=== PATIENT | male | born 1935 | race Caucasian/White ===

== ENCOUNTER → 2016-05-17 | Outpatient (CLI) | payer MEDICARE, OTHER ==
[~2016-05-17] VITALS: Ht 170.2 cm; Wt 81.6 kg
[~2016-05-17] MED LIST: ASPI1TAB24 PO; AVAP150T31 PO; COEN1POW PO; DIPH2.5T14 PO; FISH1000 PO; FURO20TA2 PO; LIDOCAINE 2% INJ 100 MG/5 ML SDV (FOR ANES.) As Ordered ONE; NORV5TAB PO; NS 1,000 ML IV SCH; PANT40TA2 PO; PLAV75TA38 PO; PROPOFOL 200 MG/20 ML VIAL As Ordered ONE; RED1CAP5 PO; VITA100066 PO; VITATAB11 PO
--- NOTE | 2016-05-17 11:43 | ROOR ---
Patient Name: Erik Haddad Procedure Date: 05/17/2016 11:27 AM Date of : 1935 Age: 81 Room: [facility] Gender: Male Note Status: Finalized Procedure: Colonoscopy to Cecum Indications: High risk colon cancer surveillance: Personal history of colonic polyps Providers: Tremaine Pocne MD Referring MD: Justin Estrada MD Requesting Provider: Medicines: Monitored Anesthesia Care Complications: No immediate complications. Procedure: Pre-Anesthesia Assessment: - The heart rate, respiratory rate, oxygen saturations, blood pressure, adequacy of pulmonary ventilation, and response to care were monitored throughout the procedure. The Colonoscope was introduced through the anus and advanced to the cecum, identified by appendiceal orifice and ileocecal valve. The colonoscopy was performed without difficulty. The patient tolerated the procedure well. The quality of the bowel preparation was excellent. Findings: The perianal and digital rectal examinations were normal. Non-bleeding internal hemorrhoids were found during retroflexion. The hemorrhoids were small and Grade I (internal hemorrhoids that do not prolapse). Scattered small-mouthed diverticula were found in the recto-sigmoid colon, sigmoid colon and descending colon. The exam was otherwise without abnormality on direct and retroflexion views. Impression: - Non-bleeding internal hemorrhoids. - Diverticulosis in the recto-sigmoid colon, in the sigmoid colon and in the descending colon. - The examination was otherwise normal on direct and retroflexion views. - No specimens collected. - The exam was otherwise normal to the cecum. Recommendation: - Patient has a contact number available for emergencies. The signs and symptoms of potential delayed complications were discussed with the patient. Return to normal activities tomorrow. Written discharge instructions were provided to the patient. - High fiber diet. - Discharge patient to home. - Continue present medications. - Repeat colonoscopy for symptoms only. - Return to referring physician. - The findings and recommendations were discussed with the patient's family. Tremaine Ponce MD Tremaine Ponce MD 05/17/2016 11:43:31 AM This report has been signed electronically. Number of Addenda: 0 Note Initiated On: 05/17/2016 11:27 AM Estimated Blood Loss: Estimated blood loss: none.
[2016-05-17 12:20] VITALS: BP 147/78
== END | disposition home or self-care (01) ==
LOC: M OPP 10:27
PROVIDERS: ATTEND Internal Medicine Gastroenterology
DX: Z12.11 Encounter for screening for malignant neoplasm of colon (principal); K64.0 First degree hemorrhoids; K57.30 Diverticulosis of large intestine without perforation or abscess without bleeding; Z86.010 Personal history of colon polyps; I10 Essential (primary) hypertension; E78.5 Hyperlipidemia, unspecified; Z87.19 Personal history of other diseases of the digestive system; R12 Heartburn; R23.3 Spontaneous ecchymoses; M19.90 Unspecified osteoarthritis, unspecified site; Z85.828 Personal history of other malignant neoplasm of skin; I63.9 Cerebral infarction, unspecified; H26.9 Unspecified cataract; Z92.3 Personal history of irradiation; Z79.82 Long term (current) use of aspirin; Z79.01 Long term (current) use of anticoagulants; Z79.899 Other long term (current) drug therapy; Z87.891 Personal history of nicotine dependence
CPT/HCPCS: 99156; G0105

== ENCOUNTER → 2016-11-03 | Outpatient (REF) | payer MEDICARE, OTHER ==
[~2016-11-03] MED LIST changes: +ASPI-161 PO; -ASPI1TAB24 PO; -LIDOCAINE 2% INJ 100 MG/5 ML SDV (FOR ANES.) As Ordered ONE; -NS 1,000 ML IV SCH; +PLAV1TAB2 PO; -PLAV75TA38 PO; -PROPOFOL 200 MG/20 ML VIAL As Ordered ONE
[2016-11-03 13:02] LABS: BASO # 0.1 K/mm3 (0.0-0.2); BASO % 0.9 % (0.0-1.0); EOS # 0.4 K/mm3 (0.0-0.50); EOS % 6.2 % (0.0-3.0); LARGE UNSTAINED CELL # 0.2 K/mm3 (0.0-0.4); LARGE UNSTAINED CELL % 2.2 % (0.0-4.0); LYMPH # 1.8 K/mm3 (1.5-4.5); LYMPH % 24.1 % (24.0-44.0); MEAN CORPUSCULAR HEMOGLOBIN 33.3 pg (27.0-33.0); MEAN CORPUSCULAR HGB CONC 34.1 g/dl (32.0-36.5); MEAN CORPUSCULAR VOLUME 97.7 fl (80.0-96.0); MONO # 0.6 K/mm3 (0.0-0.8); MONO % 8.5 % (0.0-5.0); NEUTROPHILS # 3.9 K/mm3 (1.8-7.7); PLATELET COUNT, AUTOMATED 202 k/mm3 (150-450); RED CELL DISTRIBUTION WIDTH 12.8 % (11.5-14.5); WHITE BLOOD COUNT 6.7 K/mm3 (4.0-10.0)
[2016-11-03 13:27] LABS: ALBUMIN 3.6 GM/DL (3.2-5.2); ALBUMIN/GLOBULIN RATIO 1.09 (1.00-1.93); BILIRUBIN,TOTAL 0.8 MG/DL (0.2-1.0); CALCIUM LEVEL 9.2 MG/DL (8.8-10.2); CREATININE FOR GFR 1.57 MG/DL (0.70-1.30); FREE T4 1.25 NG/DL (0.76-1.46); GLOMERULAR FILTRATION RATE 45.5 (>35); POTASSIUM SERUM 4.6 MEQ/L (3.5-5.1); TOTAL PROTEIN 6.9 GM/DL (6.4-8.2)
== END ==
LOC: M SFHCPLAZ 09:40
PROVIDERS: ATTEND Family Medicine
DX: Z86.73 Personal history of transient ischemic attack (TIA), and cerebral infarction without residual deficits (principal); E03.9 Hypothyroidism, unspecified; R73.01 Impaired fasting glucose

== ENCOUNTER → 2016-11-16 | Outpatient (REF) | payer MEDICARE, OTHER ==
[2016-11-16 13:30] LABS: URIC ACID 8.9 MG/DL (3.5-7.2)
== END ==
LOC: M SFHCPLAZ 09:46
PROVIDERS: ATTEND Family Medicine
DX: K62.5 Hemorrhage of anus and rectum (principal)
CPT/HCPCS: 36415; 82607; 84550; G0103

== ENCOUNTER → 2017-06-13 | Outpatient (REF) | payer MEDICARE, OTHER ==
[2017-06-13 18:55] LABS: BASO % 0.7 % (0.0-1.0); EOS # 0.4 10^3/uL (0.0-0.50); EOS % 6.5 % (0.0-3.0); HEMATOCRIT 47.3 % (42.0-52.0); IMMATURE GRANULOCYTE % 0.2 % (0-3.0); LYMPH # 1.9 10^3/uL (1.5-4.5); LYMPH % 30.9 % (24.0-44.0); MEAN CORPUSCULAR HEMOGLOBIN 32.3 pg (27.0-33.0); MEAN CORPUSCULAR HGB CONC 33.8 g/dl (32.0-36.5); MEAN CORPUSCULAR VOLUME 95.4 fl (80.0-96.0); MONO # 0.6 10^3/uL (0.0-0.8); MONO % 9.2 % (0.0-5.0); NEUTROPHILS # 3.2 10^3/uL (1.8-7.7); NEUTROPHILS % 52.5 % (36.0-66.0); PLATELET COUNT, AUTOMATED 224 10^3/uL (150-450); RED BLOOD COUNT 4.96 10^6/uL (4.30-6.10); RED CELL DISTRIBUTION WIDTH 13.2 % (11.5-14.5)
[2017-06-13 19:10] LABS: ALBUMIN 3.8 GM/DL (3.2-5.2); ALBUMIN/GLOBULIN RATIO 1.09 (1.00-1.93); ALKALINE PHOSPHATASE 89 U/L (45-117); ALT/SGPT 34 U/L (12-78); ANION GAP 4 MEQ/L (8-16); AST/SGOT 20 U/L (7-37); BILIRUBIN,TOTAL 0.8 MG/DL (0.2-1.0); BLOOD UREA NITROGEN 25 MG/DL (7-18); CALCIUM LEVEL 9.7 MG/DL (8.8-10.2); CARBON DIOXIDE LEVEL 28 MEQ/L (21-32); CHLORIDE LEVEL 110 MEQ/L (98-107); CREATININE FOR GFR 1.53 MG/DL (0.70-1.30); GLOMERULAR FILTRATION RATE 46.7 (>35); GLUCOSE, FASTING 73 MG/DL (70-100); POTASSIUM SERUM 4.2 MEQ/L (3.5-5.1); RHEUMATOID FACTOR QUANT < 10.0 IU/ML (<15.0); SODIUM LEVEL 142 MEQ/L (136-145); TOTAL PROTEIN 7.3 GM/DL (6.4-8.2)
[2017-06-13 20:08] LABS: ESTIMATED AVERAGE GLUCOSE 103 MG/DL (60-110); HEMOGLOBIN A1c 5.2 %
[2017-06-13 21:00] LABS: ERYTHROCYTE SEDIMENTATION RATE 9 mm/hr (0-20)
[2017-06-14 10:13] LABS: ALBUMIN 4.15 GM/DL (3.29-5.55); ALBUMIN % 56.9 % (55.8-66.1); ALPHA-1-GLOBULIN % 4.8 % (2.9-4.9); ALPHA-1-GLOBULINS 0.35 GM/DL (0.17-0.41); ALPHA-2-GLOBULINS 0.85 GM/DL (0.42-0.99); ALPHA-2-GLOBULINS % 11.6 % (7.1-11.8); BETA-1-GLOBULINS 0.51 GM/DL (0.28-0.60); BETA-2-GLOBULINS % 6.8 % (3.2-6.5); GAMMA GLOBULIN % 12.9 % (11.1-18.8); GAMMA GLOBULINS 0.94 GM/DL (0.65-1.58)
[2017-06-15 08:04] LABS: FOLATE > 24.0 NG/ML; VITAMIN B12 LEVEL 411 PG/ML
[2017-06-15 14:19] LABS: ANTINUCLEAR ANTIBODIES DIRECT Negative (Negative); SJOGREN'S ANTI SS-A <0.2 AI (0.0-0.9); SJOGREN'S ANTI SS-B <0.2 AI (0.0-0.9)
[2017-06-18 14:12] LABS: ANTI DOUBLE STRAND-DNA AB 1 IU/mL (0-9); VITAMIN E(ALPHA TOCOPHEROL) 12.4 mg/L (9.0-29.0)
[2017-06-19 10:44] LABS: DRVV SCREEN 44.4 SEC
[2017-06-20 00:06] LABS: VITAMIN B1 LEVEL WHOLE BLOOD 193.6 nmol/L (66.5-200.0)
== END ==
LOC: M LABNEURO 10:11
DX: R41.3 Other amnesia (principal); Z79.899 Other long term (current) drug therapy
CPT/HCPCS: 82746

== ENCOUNTER → 2017-07-24 | Outpatient (REF) | payer MEDICARE, OTHER ==
[2017-07-24 13:50] LABS: BASO % 0.6 % (0.0-1.0); EOS # 0.2 10^3/uL (0.0-0.50); EOS % 3.9 % (0.0-3.0); HEMATOCRIT 44.3 % (42.0-52.0); HEMOGLOBIN 15.2 g/dl (13.5-17.5); IMMATURE GRANULOCYTE % 0.4 % (0-3.0); LYMPH # 1.7 10^3/uL (1.5-4.5); LYMPH % 33.4 % (24.0-44.0); MEAN CORPUSCULAR HEMOGLOBIN 32.8 pg (27.0-33.0); MEAN CORPUSCULAR HGB CONC 34.3 g/dl (32.0-36.5); MEAN CORPUSCULAR VOLUME 95.5 fl (80.0-96.0); MONO # 0.8 10^3/uL (0.0-0.8); MONO % 15.8 % (0.0-5.0); NEUTROPHILS # 2.4 10^3/uL (1.8-7.7); NEUTROPHILS % 45.9 % (36.0-66.0); PLATELET COUNT, AUTOMATED 188 10^3/uL (150-450); RED BLOOD COUNT 4.64 10^6/uL (4.30-6.10); RED CELL DISTRIBUTION WIDTH 13.2 % (11.5-14.5); WHITE BLOOD COUNT 5.1 10^3/uL (4.0-10.0)
[2017-07-24 14:23] LABS: ALBUMIN 3.6 GM/DL (3.2-5.2); ALBUMIN/GLOBULIN RATIO 1.06 (1.00-1.93); ALKALINE PHOSPHATASE 101 U/L (45-117); ALT/SGPT 35 U/L (12-78); ANION GAP 5 MEQ/L (8-16); AST/SGOT 27 U/L (7-37); BILIRUBIN,TOTAL 0.6 MG/DL (0.2-1.0); BLOOD UREA NITROGEN 23 MG/DL (7-18); CARBON DIOXIDE LEVEL 27 MEQ/L (21-32); CHLORIDE LEVEL 109 MEQ/L (98-107); CPK CREATINE PHOSPHOKINASE 40 U/L (39-308); CREATININE FOR GFR 1.63 MG/DL (0.70-1.30); GLOMERULAR FILTRATION RATE 43.4 (>35); GLUCOSE, FASTING 80 MG/DL (70-100); POTASSIUM SERUM 4.1 MEQ/L (3.5-5.1); SODIUM LEVEL 141 MEQ/L (136-145); TROPONIN I 0.02 NG/ML (< 0.10)
[2017-07-26 10:13] LABS: D001-IgE D pteronyssinus <0.10 kU/L (Class 0); E001-IgE Cat Epith/Dander < 0.10 kU/L (Class 0); E005-IgE Dog Dander < 0.10 kU/L (Class 0); G002-IgE Bermuda Grass < 0.10 kU/L (Class 0); G008-IgE Kentucky Bluegrass < 0.10 kU/L (Class 0); M001-IgE Penicillium chrysogen < 0.10 kU/L (Class 0); M002 IgE Cladosporium herbaru < 0.10 kU/L (Class 0); M003 IgE Aspergillus fumigatu < 0.10 kU/L (Class 0); M006-IgE Alternaria alternata < 0.10 kU/L (Class 0); T001-IgE Maple/Box Elder < 0.10 kU/L (Class 0); T003-IgE Common Silver Birch < 0.10 kU/L (Class 0); T006-IgE Cedar, Mountain < 0.10 kU/L (Class 0); T007-IgE Oak, White < 0.10 kU/L (Class 0); T008-IgE Elm, American < 0.10 kU/L (Class 0); T015-IgE Ash, White < 0.10 kU/L (Class 0); T041-IgE Hickory, White < 0.10 kU/L (Class 0); T070-IgE White Mulberry < 0.10 kU/L (Class 0); W001-IgE Ragweed, Short < 0.10 kU/L (Class 0); W009-IgE Plantain, English < 0.10 kU/L (Class 0); W014-IgE Pigweed, Rough < 0.10 kU/L (Class 0); W018-IgE Sheep Sorrel < 0.10 kU/L (Class 0)
== END ==
LOC: M SFHCPLAZ 12:18
DX: R53.83 Other fatigue (principal); R05 Cough; Z79.899 Other long term (current) drug therapy
CPT/HCPCS: 82550

== ENCOUNTER 2017-08-12 06:39 | Emergency (ER) | payer MEDICARE, OTHER ==
[2017-08-12 07:48] LABS: BASO % 0.6 % (0.0-1.0); EOS # 0.4 10^3/uL (0.0-0.50); EOS % 5.2 % (0.0-3.0); HEMATOCRIT 40.8 % (42.0-52.0); HEMOGLOBIN 14.2 g/dl (13.5-17.5); IMMATURE GRANULOCYTE % 0.1 % (0-3.0); LYMPH # 1.6 10^3/uL (1.5-4.5); LYMPH % 22.2 % (24.0-44.0); MEAN CORPUSCULAR HEMOGLOBIN 32.4 pg (27.0-33.0); MEAN CORPUSCULAR HGB CONC 34.8 g/dl (32.0-36.5); MEAN CORPUSCULAR VOLUME 93.2 fl (80.0-96.0); MONO # 0.6 10^3/uL (0.0-0.8); MONO % 8.4 % (0.0-5.0); NEUTROPHILS # 4.5 10^3/uL (1.8-7.7); NEUTROPHILS % 63.5 % (36.0-66.0); PLATELET COUNT, AUTOMATED 196 10^3/uL (150-450); RED BLOOD COUNT 4.38 10^6/uL (4.30-6.10); WHITE BLOOD COUNT 7.1 10^3/uL (4.0-10.0)
[2017-08-12 08:00] LABS: INR 0.98; PROTHROMBIN TIME 13.1 SECONDS (12.4-14.5)
[2017-08-12 08:01] LABS: PARTIAL THROMBOPLASTIN TIME 28.6 SECONDS (26.8-37.9)
== END 2017-08-12 08:18 | disposition home or self-care (01) ==
LOC: M ED 06:39
DX: R04.0 Epistaxis (principal); I10 Essential (primary) hypertension; Z86.73 Personal history of transient ischemic attack (TIA), and cerebral infarction without residual deficits; K21.9 Gastro-esophageal reflux disease without esophagitis; Z87.891 Personal history of nicotine dependence; Z79.82 Long term (current) use of aspirin; Z79.899 Other long term (current) drug therapy
CPT/HCPCS: 85610

== ENCOUNTER 2018-05-10 06:32 | Inpatient (IN) | payer MEDICARE, OTHER ==
[~2018-05-10] VITALS: Ht 170.2 cm; Wt 78.1 kg
[~2018-05-10 06:32] MED LIST changes: +EZET10TA PO; +FEBU40TA PO; +NAME5TAB13 PO; -PANT40TA2 PO; +PANT40TA3 PO
[2018-05-10] MEDS ORDERED: VITA100066 PO (06:56)
[2018-05-10 06:58] LABS: BASO # 0.1 10^3/uL (0.0-0.2); BASO % 0.6 % (0.0-1.0); EOS # 0.4 10^3/uL (0.0-0.50); EOS % 3.5 % (0.0-3.0); HEMATOCRIT 43.6 % (42.0-52.0); HEMOGLOBIN 14.3 g/dl (13.5-17.5); LYMPH # 1.3 10^3/uL (1.5-4.5); LYMPH % 12.6 % (24.0-44.0); MEAN CORPUSCULAR HEMOGLOBIN 30.9 pg (27.0-33.0); MEAN CORPUSCULAR HGB CONC 32.8 g/dl (32.0-36.5); MEAN CORPUSCULAR VOLUME 94.2 fl (80.0-96.0); MONO # 0.9 10^3/uL (0.0-0.8); MONO % 8.8 % (0.0-5.0); NEUTROPHILS # 7.5 10^3/uL (1.8-7.7); NEUTROPHILS % 74.1 % (36.0-66.0); PLATELET COUNT, AUTOMATED 219 10^3/uL (150-450); RED BLOOD COUNT 4.63 10^6/uL (4.30-6.10); WHITE BLOOD COUNT 10.1 10^3/uL (4.0-10.0)
[2018-05-10 07:20] LABS: INR 1.03; PARTIAL THROMBOPLASTIN TIME 31.4 SECONDS (25.4-37.6); PROTHROMBIN TIME 13.6 SECONDS (12.1-14.4)
[2018-05-10 07:28] LABS: BLOOD UREA NITROGEN 25 MG/DL (7-18); CALCIUM LEVEL 9.4 MG/DL (8.8-10.2); CARBON DIOXIDE LEVEL 25 MEQ/L (21-32); CHLORIDE LEVEL 109 MEQ/L (98-107); GLOMERULAR FILTRATION RATE 41.3 (>35); GLUCOSE, FASTING 95 MG/DL (70-100); POTASSIUM SERUM 4.4 MEQ/L (3.5-5.1); SODIUM LEVEL 142 MEQ/L (136-145)
[2018-05-10 07:50] LABS: ALBUMIN 3.3 GM/DL (3.2-5.2); ALT/SGPT 23 U/L (12-78); BILIRUBIN,DIRECT 0.2 MG/DL (0.0-0.2); BILIRUBIN,TOTAL 0.9 MG/DL (0.2-1.0); CPK CREATINE PHOSPHOKINASE 41 U/L (39-308); MB/CK RELATIVE INDEX 2.68 (< OR =4); NT-PRO BNP 5969 PG/ML (<450); TOTAL PROTEIN 6.8 GM/DL (6.4-8.2); TROPONIN I < 0.02 NG/ML (< 0.10)
--- NOTE | 2018-05-10 08:21 | REP ---
AP portable chest: 05/10/2018 Clinical history: Chest pain. Findings: AP seated chest with somewhat lordotic projection. Lungs are well inflated. There is some underlying fibrosis greater in the bases, right than left. No dense consolidation or effusion. Heart is borderline. There is no vascular redistribution or edema. The aorta is tortuous and calcified. Airway intact. No free air under the diaphragm. Impression: 1. Some mild cardiomegaly with no effusion or edema. 2. Tortuous calcified aorta with ectasia. 3. Basilar fibrosis, heavier right than left. Bones demineralized. Electronically Signed by Roshan Najera MD 05/10/2018 06:20 P
[2018-05-10] MEDS ORDERED: FUROSEMIDE 40 MG/4 ML VIAL (J1940) IV ONE (08:30)
--- NOTE | 2018-05-10 08:38 | REPVR ---
EXAM: CT Head Without Contrast EXAM DATE/TIME: 05/10/2018 7:31 AM CLINICAL HISTORY: 83 years old, male; Signs and symptoms; Other: Neuro symptoms; Additional info: Vague neuro symptoms, new afib TECHNIQUE: Axial computed tomography images of the head/brain without contrast. All CT scans at this facility use at least one of these dose optimization techniques: automated exposure control; mA and/or kV adjustment per patient size (includes targeted exams where dose is matched to clinical indication); or iterative reconstruction. COMPARISON: No relevant prior studies available. FINDINGS: Brain: Low-attenuation area in the left thalamus, and right basal ganglia/anterior limb of the external capsule representing age-indeterminate may be subacute infarcts. Old infarct in the left yin radiata extending into the left periventricular white matter. No large territory infarct is seen. No hemorrhage. Further evaluation with MR is recommended. Moderate small vessel ischemic changes are seen. There is no mass, midline shift, or mass effect. Mckeon-white matter differentiation is preserved. There is no evidence of hemorrhage. There is no extra-axial fluid collection. Basal cisterns are patent. 5 mm hyperdensity in the region of the foramen of Al, likely choroid cyst. Ventricles: Mild prominence of ventricles and sulci representing volume loss. Bones/joints: Unremarkable. No acute fracture. Sinuses: Mild mucosal thickening of ethmoidal air cells. Mastoid air cells: Visualized mastoid air cells are unremarkable. No mastoid effusion. Soft tissues: Unremarkable. IMPRESSION: 1. Low-attenuation area in the left thalamus, and right basal ganglia/anterior limb of the external capsule representing age-indeterminate may be subacute infarcts. Old infarct in the left yin radiata extending into the left periventricular white matter. No large territory infarct is seen. No hemorrhage. 2. Mild volume loss and moderate small vessel ischemic changes. Electronically signed by: Renae Valencia On 05/10/2018 08:37:52 AM
--- NOTE | 2018-05-10 12:02 | REP ---
MRA BRAIN WITHOUT CONTRAST: HISTORY: Infarctions. 3D [id number] MR angiography was performed at the level of the [place]. There is no aneurysm or arteriovenous malformation. Mild atherosclerotic disease involves the cavernous and supraclinoid internal carotid arteries, middle cerebral artery trifurcations, basilar, and posterior cerebral arteries. There is loss of the normal hyperintense signal in the distal left vertebral artery in the foramen magnum. This is secondary to at least moderate stenosis. Major intracranial vessels are patent. The right vertebral artery is dominant. IMPRESSION: 1. There is no aneurysm or arteriovenous malformation. 2. Atherosclerotic disease, as described above. Electronically Signed by Mahesh Ivey MD 05/10/2018 12:04 P
--- NOTE | 2018-05-10 12:35 | REP ---
MR BRAIN WITHOUT CONTRAST: HISTORY: Neurologic symptoms. COMPARISON: CT 05/10/2018. A punctate focus of increased signal intensity on diffusion weighted images is present in the left parietal lobe. This is isointense in signal intensity on ADC images and is consistent with a subacute infarction. Areas of increased signal intensity on T2-weighted images are present in the basal ganglia, left internal capsule, and left centrum semiovale. These represent old lacunar infarctions. Areas of increased signal intensity are present in the periventricular and subcortical white matter. This represents small vessel ischemic disease. There is no intraparenchymal hemorrhage, acute infarct, mass, or midline shift. The ventricular system and cortical sulci as well as subarachnoid space in the posterior fossa are dilated consistent with mild volume loss. There is no extracerebral collection. The visualized sinuses are clear. IMPRESSION: 1. Punctate subacute left parietal lobe infarction. 2. Old bilateral basal ganglia, left internal capsule, and centrum semiovale lacunar infarctions. 3. Small vessel ischemic disease. 4. Mild volume loss. Electronically Signed by Mahesh Ivey MD 05/10/2018 12:36 P
[2018-05-10] MEDS ORDERED: NS 1,000 ML IV SCH (14:05)
[2018-05-10] MEDS ORDERED: FISH7.5C PO (14:21)
[2018-05-10] MEDS ORDERED: COEN200C PO (14:23)
--- NOTE | 2018-05-10 15:33 | HPE ---
DATE OF ADMISSION: 05/10/2018 The patient is an 83-year-old with a past medical history of hypertension, hyperlipidemia, history of cerebrovascular accident (CVA) times two, one in June 2001 and the other one in 2004, benign prostatic hypertrophy (BPH) who presents to the emergency room after having a severe acute vertigo episode. He did not feel like he was going to pass out but he was walking and he suddenly felt very, very dizzy. Over the past couple of weeks, he has been having more mild shortness of breath and decreased energy upon ambulation. No chest pain or palpitations. When he came to the emergency room (ER), he was found to be in new onset atrial fibrillation with rate being controlled and MRI and MRA of the brain was done. MRA was negative. MRI did show a left parietal lobe new subacute infarct so he will be admitted for further management. PAST MEDICAL HISTORY: 1. Hypertension. 2. Hyperlipidemia. 3. History of cerebrovascular accident (CVA) in 2001 and 2004. 4. History of gastroesophageal reflux disease (GERD). 5. Benign prostatic hypertrophy (BPH). ALLERGIES: He has drug allergies to ASPIRIN. FAMILY HISTORY: Noncontributory. SOCIAL HISTORY: The patient denies tobacco, alcohol or illicit drugs. MEDICATIONS: He takes at home are as follows: - aspirin 81 mg orally daily - amlodipine 2.5 mg orally daily - vitamin B complex one tablet orally daily - cholecalciferol 1000 units orally daily - Plavix 75 mg orally daily - ezetimibe 10 mg orally daily - febuxostat 40 mg orally at bedtime - irbesartan 150 mg orally twice daily - memantine 5 mg orally daily - omega-3 fatty acids one tablet orally daily - pantoprazole 40 mg orally daily REVIEW OF SYSTEMS: Negative for all 10 major systems except for what is mentioned in the history of present illness (HPI). VITAL SIGNS: Blood pressure is 129/92, heart rate is 114 and irregular, respiratory rate is 18, temperature 98.5, oxygen saturation is 93% on room air. Head is normocephalic, atraumatic. NECK: Supple. No jugular venous distention (JVD). LUNGS: Clear to auscultation. S1, S2 audible. No murmurs appreciated. ABDOMEN: Soft. Positive bowel sounds. No pedal edema. SKIN: Intact. NEUROLOGIC: The patient is awake, alert, and oriented times three. No focal deficits. LABORATORY DATA: WBC 10.1, hemoglobin 14.3, hematocrit 43.6, platelets are 219,000. Sodium 142, potassium 4.4, chloride is 109, CO2 25, BUN is 25, creatinine is 1.7, glucose is 95, troponin is less than 0.02 first set, TSH is 5.2, INR 1.03. Urinalysis was unremarkable. Chest x-ray shows some mild cardiomegaly with no effusion or edema. IMPRESSION: 1. New onset atrial fibrillation. 2. Subacute parietal lobe infarct. PLAN: The patient will be admitted to the progressive care unit (PCU). His CHADs vascular score is 5 which puts him at a high risk for embolic stroke. I actually believe that he is having atrial fibrillation this past couple of weeks where he has been having these vague symptoms. I will start him on Eliquis 2.5 mg by mouth twice a day and I am going to stop his amlodipine and start him on Lopressor 25 mg orally twice daily. We will monitor his blood pressure and his heart rate respectively. We will get a second troponin to rule out acute coronary syndrome. Neurology's input is appreciated. They do not need to be on consult at this time. We will start the patient on Eliquis as mentioned earlier. We will have them as well as cardiology follow the patient as an outpatient. I will also get an echocardiogram to rule out any kind of valvular thrombus.
[2018-05-10] MEDS: METOPROLOL TART 25 MG TABLET PO SCH (16:06)
[2018-05-10 19:30] VITALS: BP 130/90
--- NOTE | 2018-05-10 20:32 | ECGEPIP ---
Stationary ECG Study [facility] - ED Test Date: 2018-05-10 Pat Name: MACIE SMITH Department: Room: [place] [address] Gender: M Barber Stylist: : 1935 Requested By: JACK Johnson Order Number: [id number] Reading MD: Juan Roberts Measurements Intervals [place] Rate: 98 P: PA: 0 QRS: -4 QRSD: 88 T: 71 QT: 346 QTc: 443 Interpretive Statements ATRIAL FIBRILLATION MODERATE VOLTAGE CRITERIA FOR LVH, CONSIDER NORMAL VARIANT NONSPECIFIC ST & T-WAVE ABNORMALITY NO PRIORS FOR COMPARISON Electronically Signed On 05-10-2018 20:32:12 EDT by Juan Roberts
[2018-05-10] MEDS: APIXABAN 2.5 MG TAB (ELIQUIS) PO SCH (21:23)
[2018-05-10] MEDS: IRBESARTAN 150 MG TAB PO SCH (21:23)
[2018-05-10] MEDS: FEBUXOSTAT 40 MG TABLET (ULORIC) PO SCH (21:23)
[2018-05-11] VITALS: BP 147/85
[2018-05-11] MEDS: METOPROLOL TART 25 MG TABLET PO SCH (03:50)
[2018-05-11 06:21] LABS: CALCIUM LEVEL 9.4 MG/DL (8.8-10.2); CREATININE FOR GFR 1.8 MG/DL (0.70-1.30); GLOMERULAR FILTRATION RATE 38.6 (>35); POTASSIUM SERUM 3.9 MEQ/L (3.5-5.1)
[2018-05-11 07:55] VITALS: BP 117/66
--- NOTE | 2018-05-11 08:15 | REP ---
Bilateral carotid duplex ultrasound: Bilateral carotid artery duplex ultrasound: Peak flow velocity analysis: RIGHT LEFT ICA Peak flow velocity cm/sec 53.5 49.7 ICA Diastolic flow velocity cm/sec 23.1 18.8 ICA/CCA Ratio 0.6 2.7 ECA Peak flow velocity cm/sec 65.6 85.0 CCA Peak flow velocity cm/sec 82.8 69.6 There is moderate atheromatous plaque in the common carotid arteries, bulbs and proximal ICA s and ECAs bilaterally. Peak flow velocities are normal bilaterally. The findings indicate less than 50% stenosis bilaterally. There is no significant stenosis on the right on the left. There is antegrade flow in the vertebral arteries bilaterally. Electronically Signed by Eladio Burger MD 05/11/2018 08:07 A
[2018-05-11] MEDS ORDERED: CLOPIDOGREL 75 MG TAB PO SCH (09:00)
--- NOTE | 2018-05-11 09:42 | CR ---
DATE OF CONSULTATION: 05/10/2018 REFERRING PHYSICIAN: Dr. Roberts REASON FOR CONSULTATION: Stroke and new-onset atrial fibrillation. HISTORY OF PRESENT ILLNESS: Mr. Haddad is an 83-year-old man with a history of stroke in 2001 and 2004who has been having symptoms of not feeling well for the last several weeks. He had an episode of dizziness described as spinning sensation. He also was not feeling well. He felt shortness of breath. He felt decreased energy. He denied any trouble with speech, numbness, weakness of arms and legs. His symptoms started a week ago. He did not feel any palpitations. He denies any seizures, neck or back pain. He had a headache yesterday. He came to the emergency department and was found to have new-onset atrial fibrillation. MRI scan of brain showed a small left parietal deep cerebral white matter acute - subacute ischemic stroke. Dr. Roberts called me about him, and I recommended admitting the patient to the hospital and discontinuing his Plavix, not continue his aspirin and start him on anticoagulation. The patient has decreased kidney functions with creatinine 1.7. The patient has been started on Eliquis 2.5 mg by mouth twice a day. The patient has been on aspirin and Plavix for 14 years. He had nosebleed in 2018, which stopped after his nose was packed in the emergency department. The patient also has slightly unsteady gait. He is supposed to use a walker but hardly ever uses it. He also has hemorrhoids, which bleed whenever he has diarrhea. He had a colonoscopy by Dr. Ponce 2 years ago. His hemorrhoids have been bleeding periodically off and on for the last 14 years since he has been on aspirin and Plavix. PAST MEDICAL HISTORY: Hypertension, dyslipidemia, strokes in 2001 and 2004, acid reflux, benign prostate enlargement, history of nosebleed and bleeding hemorrhoids. ALLERGIES: Aspirin is listed but the patient takes aspirin on a daily basis, this needs to be clarified with the patient. FAMILY HISTORY: Noncontributory. SOCIAL HISTORY: He denies smoking, alcohol or illicit drugs. HOME MEDICATIONS: - aspirin 81 mg p.o. daily - amlodipine 2.5 mg p.o. daily - Plavix 75 mg p.o. daily, which will be discontinued - Zetia 10 mg p.o. daily - Febuxostat 40 mg p.o. daily - vitamin D3 1000 units p.o. daily - vitamin B complex 1 tablet p.o. daily - amlodipine 2.5 mg p.o. daily - irbesartan 150 mg p.o. b.i.d. - memantine 5 mg p.o. daily - Protonix 40 mg p.o. daily - omega 3 fatty acids REVIEW OF SYSTEMS: All systems were reviewed and found to be noncontributory except as mentioned in history of present illness. PHYSICAL EXAMINATION: Blood pressure 129/92, heart rate 114 irregularly irregular, respiratory 18, temperature 98.5, 93% saturation on room air. Heart: Irregularly irregular. Lungs: Clear to auscultation. No pedal edema. No musculoskeletal abnormalities. No rash. No signs of meningeal irritation. The patient is awake, alert, oriented to place, person and time. Normal speech comprehension and repetition. Extraocular muscles are intact. No facial weakness. Tongue and uvula are midline. 5/5 strength in all four extremities. Deep tendon flexes 2+ throughout. No dysmetria. Normal sensation to light touch, pinprick, vibration sensation in all four extremities. Visual [place] are full to confrontation. No nystagmus. Recent and distant memory is intact. DIAGNOSTIC STUDIES: His MRI scan of brain showed a small acute left parietal deep cerebral white matter acute - subacute ischemic stroke. MRA of the brain showed mild internal carotid artery atherosclerosis. Electrocardiogram (EKG) revealed atrial fibrillation with heartbeat around 115. Telemetry showed atrial fibrillation with irregularly irregular heart referral. Creatinine 1.7, BUN 25. ASSESSMENT: 1. Small left parietal acute - subacute deep cerebral white matter ischemic stroke. 2. History of strokes in 2001 and 2004. 3. New-onset atrial fibrillation. 4. History of nosebleeds, bleeding hemorrhoids and unsteadiness while walking. 5. Hypertension. 6. Dyslipidemia. PLAN: 1. I had a detailed discussion with the patient's and children who are in favor of starting him on anticoagulation due to his new-onset atrial fibrillation. He has been started on Eliquis 2.5 mg p.o. b.i.d. They understand risk of nosebleed, bleeding hemorrhoids and unsteady gait. I have strongly advised him to use a walker most of the times. If he has any bleeding, he should seek medical attention quickly. 2. Discontinue Plavix. 3. Continue aspirin 81 mg p.o. daily. He has carotid atherosclerotic disease. Using Plavix in addition to aspirin and Eliquis will significantly increase risk of bleeding complications without providing any further benefit. 4. Carotid ultrasound. 5. Physical and occupational therapy. 6. Continue Zetia 10 mg p.o. daily. 7. Follow with our office in 2 - 3 weeks after hospital discharge.
[2018-05-11] MEDS: VITAMIN B COMPLEX/VIT C CAP PO SCH (09:57)
[2018-05-11] MEDS: APIXABAN 2.5 MG TAB (ELIQUIS) PO SCH ×2 (09:57→20:35)
[2018-05-11] MEDS: CO-ENZYME Q10 50 MG CAP PO SCH (09:58)
[2018-05-11] MEDS: ASPIRIN 81 MG ENTERIC TAB PO SCH (09:58)
[2018-05-11] MEDS: MEMANTINE 5MG TABLET (NAMENDA) PO SCH (09:58)
[2018-05-11] MEDS: EZETIMIBE 10 MG TAB (ZETIA) PO SCH (09:58)
[2018-05-11] MEDS: VITAMIN D 1,000 INTERNATIONAL UNITS TABLET PO SCH (09:58)
[2018-05-11] MEDS: PANTOPRAZOLE 40MG TAB (PROTONIX) PO SCH (09:58)
[2018-05-11 10:05] LABS: CHOLESTEROL RISK RATIO 3.382 (<5)
[2018-05-11 12:00] VITALS: BP 120/72
[2018-05-11] MEDS: OMEGA-3 1000MG CAPSULE PO SCH (12:17)
[2018-05-11 15:48] VITALS: BP 142/82
--- NOTE | 2018-05-11 17:06 | IPNPDOC ---
Text Note Date of Service The patient was seen on 05/11/18. NOTE SUBJECTIVE: No new complaint this am , dizziness is better. received metoprolol last night then he had a 4.9 sec pause in the tele monitor. pateint was symptomatic. His metoprolol was discontinued. Even on admission his pulse rate was not uncontrolled. PHYSICAL EXAM: VITAL SIGNS: As below HEENT: Normocephalic, atraumatic, moist mucous membranes, anicteric eyes. NECK: Supple. No jugular venous distention (JVD). LUNGS: Clear to auscultation. HEART: S1, S2 audible. Irregular, rate normal No murmurs appreciated. ABDOMEN: Soft. Positive bowel sounds. No pedal edema. SKIN: Intact. NEUROLOGIC: The patient is awake, alert, and oriented times three. No focal deficits. LABS and RADIOLOGY: reviewed ASSESSMENT AND PLAN: The patient is an 83-year-old with a past medical history of hypertension, hyperlipidemia, history of cerebrovascular accident (CVA) times two, one in June 2001 and the other one in 2004, benign prostatic hypertrophy (BPH) who presents to the emergency room after having a severe acute vertigo episode. He did not feel like he was going to pass out but he was walking and he suddenly felt very, very dizzy. Over the past couple of weeks, he has also been having mild shortness of breath and decreased energy upon ambulation. No chest pain or palpitations. When he came to the emergency room (ER), he was found to be in new onset atrial fibrillation with rate being controlled and MRI and MRA of the brain was done. MRA was negative. MRI did show a left parietal lobe new subacute infarct so he will be admitted for further management. The pateint was admitted for stroke. CVA left parietal lobe subacute infarction in MRI Carotid US less than 50% obstruction bilaterally continue asa, zetia, eliquis PT, OT Afib probably chronic but not diagnosed before. Had a 4.9 sec pause last night so metoprolol was stopped . continue to monitor on telemetry. 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 Hyperlipidemia continue Zetia, fish oil will get Lipid panel Gout continue Uloric DVT prophylaxis on eliquis. VS,Fishbone, I+O VS, Fishbone, I+O Laboratory Tests 05/11/18 05:34 Calcium Level 9.4 Vital Signs Date Time Temp Pulse Resp B/P (MAP) Pulse Ox O2 Delivery O2 Flow Rate FiO2 05/11/18 07:55 97.8 63 18 117/66 (83) 93 05/10/18 18:49 Room Air I&O- Last 24 Hours up to 6 AM 05/11/18 06:00 Intake Total 948 ml Output Total 2190 ml Balance -1242 ml BRYN MOORE MD May 11, 2018 09:10
[2018-05-11 20:00] VITALS: BP 152/88
[2018-05-11] MEDS: FEBUXOSTAT 40 MG TABLET (ULORIC) PO SCH (20:35)
[2018-05-11] MEDS ORDERED: ATORVASTATIN 20 MG TAB PO SCH (21:00)
[2018-05-12] VITALS (9 sets, daily range): BP systolic 115–150; BP diastolic 38–102
[2018-05-12 05:32] LABS: BASO # 0.1 10^3/uL (0.0-0.2); BASO % 0.6 % (0.0-1.0); EOS # 0.4 10^3/uL (0.0-0.50); HEMATOCRIT 40.9 % (42.0-52.0); HEMOGLOBIN 13.5 g/dl (13.5-17.5); LYMPH # 1.4 10^3/uL (1.5-4.5); LYMPH % 17.3 % (24.0-44.0); MEAN CORPUSCULAR HEMOGLOBIN 30.9 pg (27.0-33.0); MEAN CORPUSCULAR VOLUME 93.6 fl (80.0-96.0); MONO # 1.1 10^3/uL (0.0-0.8); MONO % 13.3 % (0.0-5.0); NEUTROPHILS # 5.2 10^3/uL (1.8-7.7); NEUTROPHILS % 63.3 % (36.0-66.0); PLATELET COUNT, AUTOMATED 196 10^3/uL (150-450); RED BLOOD COUNT 4.37 10^6/uL (4.30-6.10); WHITE BLOOD COUNT 8.2 10^3/uL (4.0-10.0)
[2018-05-12 05:58] LABS: CALCIUM LEVEL 9.1 MG/DL (8.8-10.2); CREATININE FOR GFR 1.88 MG/DL (0.70-1.30); GLOMERULAR FILTRATION RATE 36.8 (>35); POTASSIUM SERUM 3.9 MEQ/L (3.5-5.1)
--- NOTE | 2018-05-12 08:10 | ECHO ---
DATE OF PROCEDURE: 05/10/2018 ATTENDING PHYSICIAN: HEIGHT: 67 inches WEIGHT: 181 pound BODY SURFACE AREA 1.94 sq m. Inpatient currently in the emergency room at the time the study. INDICATIONS: CVA with new onset atrial fibrillation. MEASUREMENTS: 2D Measurements: RV - 3.5 cm LV - 4.9 cm Septum -1.2 cm Posterior wall - 1.2 cm Aortic root - 4.6 cm LA - 4.3 cm LVEF - 65% Doppler Measurements: AV - 1.0 meters per second LVOT - 0.87 meters per second LVOT diameter - 2.2 cm MV - E 52 Early mitral deceleration time - 190 milliseconds PV - 0.75 meters per second Pulmonary artery acceleration time - 116 milliseconds PASP = 29 mmHg IVC - 1.8 cm COMMENTS: Underlying atrial fibrillation with controlled ventricular response. No intraventricular conduction disturbance. Technically difficult study in light of the patient's body habitus but diagnostically useful information was still obtained. Borderline hypertrophied left ventricle with normal wall motion. Mildly dilated left atrium. Normal right heart chamber sizes and motion and estimated pulmonary arterial pressure. Normal IVC size and collapse against an elevated central venous pressure. Mild aortic valvular sclerosis with moderately dilated aortic root and mild aortic insufficiency. Mild thickening of the mitral valvular annulus with mild insufficiency. Normal appearing tricuspid valve with very mild tricuspid insufficiency. No apparent intracardiac mass or pericardial effusion. In light of the patient's age and evidence of hypertensive heart disease, indefinite oral anticoagulation would be recommended. It is undoubtedly his left atrium that was the source of his embolic stroke. MTDD
[2018-05-12] MEDS: VITAMIN B COMPLEX/VIT C CAP PO SCH (08:52)
[2018-05-12] MEDS: CO-ENZYME Q10 50 MG CAP PO SCH (08:52)
[2018-05-12] MEDS: APIXABAN 2.5 MG TAB (ELIQUIS) PO SCH ×2 (08:52→19:19)
[2018-05-12] MEDS: EZETIMIBE 10 MG TAB (ZETIA) PO SCH (08:53)
[2018-05-12] MEDS: VITAMIN D 1,000 INTERNATIONAL UNITS TABLET PO SCH (08:53)
[2018-05-12] MEDS: ASPIRIN 81 MG ENTERIC TAB PO SCH (08:53)
[2018-05-12] MEDS: MEMANTINE 5MG TABLET (NAMENDA) PO SCH (08:53)
[2018-05-12] MEDS: PANTOPRAZOLE 40MG TAB (PROTONIX) PO SCH (08:53)
[2018-05-12] MEDS: IRBESARTAN 150 MG TAB PO SCH ×3 (09:00→23:01)
[2018-05-12] MEDS: OMEGA-3 1000MG CAPSULE PO SCH (11:47)
--- NOTE | 2018-05-12 15:57 | IPNPDOC ---
Text Note Date of Service The patient was seen on 05/12/18. NOTE SUBJECTIVE: No new complaint this am , dizziness is better. No further pauses noted in the telemetry. Pulse rate varies between 80s to 110s without any overt symptoms. patient did later say that he was having this episodes of not feeling well, not being himself at home also more frequently in the 3 days prior to admission. Will consult Dr Castro. PHYSICAL EXAM: VITAL SIGNS: As below HEENT: Normocephalic, atraumatic, moist mucous membranes, anicteric eyes. NECK: Supple. No jugular venous distention (JVD). LUNGS: Clear to auscultation. HEART: S1, S2 audible. Irregular, rate normal No murmurs appreciated. ABDOMEN: Soft. Positive bowel sounds. No pedal edema. SKIN: Intact. NEUROLOGIC: The patient is awake, alert, and oriented times three. No focal deficits. LABS and RADIOLOGY: reviewed ASSESSMENT AND PLAN: The patient is an 83-year-old with a past medical history of hypertension, hyperlipidemia, history of cerebrovascular accident (CVA) times two, one in June 2001 and the other one in 2004, benign prostatic hypertrophy (BPH) who presents to the emergency room after having a severe acute vertigo episode. He did not feel like he was going to pass out but he was walking and he suddenly felt very, very dizzy. Over the past couple of weeks, he has also been having mild shortness of breath and decreased energy upon ambulation. No chest pain or palpitations. When he came to the emergency room (ER), he was found to be in new onset atrial fibrillation with rate being controlled and MRI and MRA of the brain was done. MRA was negative. MRI did show a left parietal lobe new subacute infarct so he will be admitted for further management. The pateint was admitted for stroke. 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 Had a 4.9 sec pause in the telemonitor. continue to monitor on telemetry. rate controlled at this point started on eliquis will consult Dr Castro. 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 Hyperlipidemia continue Zetia, fish oil will get Lipid panel Gout continue Uloric DVT prophylaxis on eliquis. VS,Fishbone, I+O VS, Fishbone, I+O Laboratory Tests 05/12/18 05:18 Red Blood Count 4.37, Mean Corpuscular Volume 93.6, Mean Corpuscular Hemoglobin 30.9, Mean Corpuscular Hemoglobin Concent 33.0, Red Cell Distribution Width 12.5, Neutrophils (%) (Auto) 63.3, Lymphocytes (%) (Auto) 17.3 L, Monocytes (%) (Auto) 13.3 H, Eosinophils (%) (Auto) 5.0 H, Basophils (%) (Auto) 0.6, Neutrophils # (Auto) 5.2, Lymphocytes # (Auto) 1.4 L, Monocytes # (Auto) 1.1 H, Eosinophils # (Auto) 0.4, Basophils # (Auto) 0.1, Calcium Level 9.1 Vital Signs Date Time Temp Pulse Resp B/P (MAP) Pulse Ox O2 Delivery O2 Flow Rate FiO2 05/12/18 11:52 98.1 66 20 118/83 (95) 97 05/10/18 18:49 Room Air I&O- Last 24 Hours up to 6 AM 05/12/18 06:00 Intake Total 820 ml Output Total 1650 ml Balance -830 ml BRYN MOORE MD May 12, 2018 15:57
[2018-05-12] MEDS ORDERED: D5W/LR 1,000 ML IV SCH (16:00)
[2018-05-12] MEDS ORDERED: LIDOCAINE 1% SDV INJ 30 ML VIAL As Ordered ONE ×2 (17:39→21:15)
[2018-05-12] MEDS ORDERED: ONDANSETRON 4MG/2ML VIAL (J2405) As Ordered ONE (20:01)
[2018-05-12] MEDS ORDERED: PROPOFOL 200 MG/20 ML VIAL As Ordered ONE (20:01)
[2018-05-12] MEDS ORDERED: fentaNYL 100 MCG/2 ML INJECTION (J3010) As Ordered ONE (20:02)
[2018-05-12] MEDS ORDERED: LIDOCAINE 2% INJ 100 MG/5 ML SDV (FOR ANES.) As Ordered ONE (20:02)
[2018-05-12] MEDS ORDERED: ceFAZolin 2 GM/D5W 50 ML IV BAG (J0690 PER 500MG) As Ordered ONE (20:39)
[2018-05-12] MEDS ORDERED: ATORVASTATIN 20 MG TAB PO SCH (21:00)
[2018-05-12] MEDS ORDERED: fentaNYL 100 MCG/2 ML INJECTION (J3010) IV PRN (22:15)
[2018-05-12] MEDS ORDERED: LR 1,000 ML IV SCH (22:15)
[2018-05-12] MEDS ORDERED: ACETAMINOPHEN TAB 650MG DOSE (2X325MG) PO PRN (22:45)
[2018-05-12] MEDS ORDERED: traMADol 50 MG TAB PO PRN (22:45)
[2018-05-12] MEDS: FEBUXOSTAT 40 MG TABLET (ULORIC) PO SCH (23:00)
[2018-05-13] VITALS (7 sets, daily range): BP systolic 114–150; BP diastolic 75–98
[2018-05-13 02:26] LABS: CALCIUM LEVEL 9.1 MG/DL (8.8-10.2); CREATININE FOR GFR 1.91 MG/DL (0.70-1.30); GLOMERULAR FILTRATION RATE 36.1 (>35); MAGNESIUM LEVEL 2.1 MG/DL (1.8-2.4); POTASSIUM SERUM 4.2 MEQ/L (3.5-5.1)
[2018-05-13] MEDS: ceFAZolin SOD 1 GM in D5W MINI-BAG PLUS 50 ML IV SCH ×2 (04:27→13:42)
[2018-05-13 05:42] LABS: BASO # 0.1 10^3/uL (0.0-0.2); BASO % 0.5 % (0.0-1.0); EOS # 0.4 10^3/uL (0.0-0.50); EOS % 4.1 % (0.0-3.0); HEMATOCRIT 43.1 % (42.0-52.0); HEMOGLOBIN 14.2 g/dl (13.5-17.5); LYMPH # 1.4 10^3/uL (1.5-4.5); LYMPH % 14.6 % (24.0-44.0); MEAN CORPUSCULAR HEMOGLOBIN 30.8 pg (27.0-33.0); MEAN CORPUSCULAR HGB CONC 32.9 g/dl (32.0-36.5); MEAN CORPUSCULAR VOLUME 93.5 fl (80.0-96.0); MONO # 1.1 10^3/uL (0.0-0.8); MONO % 12.1 % (0.0-5.0); NEUTROPHILS # 6.4 10^3/uL (1.8-7.7); NEUTROPHILS % 68.2 % (36.0-66.0); PLATELET COUNT, AUTOMATED 215 10^3/uL (150-450); RED BLOOD COUNT 4.61 10^6/uL (4.30-6.10); WHITE BLOOD COUNT 9.4 10^3/uL (4.0-10.0)
[2018-05-13 06:06] LABS: CREATININE FOR GFR 1.9 MG/DL (0.70-1.30); GLOMERULAR FILTRATION RATE 36.3 (>35)
--- NOTE | 2018-05-13 07:21 | RO ---
DATE OF PROCEDURE: 05/12/2018 PREPROCEDURE DIAGNOSES: 1. 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 2. Atrial fibrillation (unspecified). POSTPROCEDURE DIAGNOSES: 1. 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 2. Atrial fibrillation (unspecified). PROCEDURE: Implantation of permanent single chamber ventricular demand pacemaker. SURGEON: Dr. Tito Castro. ANESTHESIOLOGIST: Dr. Cleary. ANESTHESIA: Monitored local anesthesia. DESCRIPTION OF PROCEDURE: In the fasting state having informed signed informed consent and having received Ancef 2 grams IV premedication, the patient was taken to the operating theater. Numerous skin electrodes were applied to facilitate continuous electrocardiographic monitoring. The left subclavian region was prepped and draped in the usual fashion. The skin was infiltrated with 1% Xylocaine. The left axillary vein was catheterized using the micropuncture technique and a 5 cm linear incision was made several centimeters below and parallel to the left clavicle. Dissection was carried down to the level of the pectoralis fascia. The pocket was fashioned below the level of the incision line. A single bipolar screw-in active fixation steroid eluding pacing lead was then advanced to the right ventricular apex under fluoroscopic and electrocardiographic control. The right ventricular lead ([employer] model number [id number], serial number [id number]) measurements were focal and stimulation threshold 0.8 V/0.4 ms/impedance 520 ohms. The R wave amplitude measured 7.8 mV. This lead was secured in position using a sleeve sutured at its insertion site. It was then connected to a single chamber pulse generator ([employer] - Assurity MRI compatible, model number [id number], serial number [id number]) and appropriate VVI pacing was documented. The generator was placed. The pocket secured in position with a suture through the upper right-hand corner of the epoxy header. The subcutaneous tissues were approximated using a running Chromic suture and skin was closed using johanny. Dry dressing was applied. The patient was returned to recovery room in good condition. Estimated blood loss less than 50 ml on Eliquis therapy. No apparent complications. Postoperative portable upright chest x-ray showed good lead position with no pneumothorax. His postoperative EKG showed underlying atrial fibrillation with mostly spontaneous AV conducted complexes but occasional appropriate VVI pacing. At this point, the patient will return to telemetry. His oral anticoagulation will be resumed in the morning to prevent further systemic thromboembolic events as he had at the time of his admission. We can now safely introduce at least low-dose metoprolol succinate for his blood pressure control and elevated BNP level. I anticipate he will be able to be discharged tomorrow morning or early afternoon. DAMIEN
[2018-05-13] MEDS ORDERED: ELIQ2.5T PO (07:52)
[2018-05-13] MEDS ORDERED: TOPR50TA23 PO (07:52)
--- NOTE | 2018-05-13 08:11 | CR ---
DATE OF CONSULTATION: 05/12/2018 CARDIOLOGY CONSULTATION: REFERRING PHYSICIAN: Dr. Re Estrada. INDICATION: New-onset atrial fibrillation with CVA and subsequent 5-second asystolic pause. 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 Otherwise had been remarkably independent and active despite prior history of cerebrovascular accidents. Up until 18 months ago had been playing tennis. This year he did shovel snow at their home for up to half an hour at a time at his own pace. Stopping with some shortness of breath. Previously followed by Dr. Patterson for multiple medical problems including hypertension, hyperlipidemia, gastroesophageal reflux disease and degenerative joint disease. Has documented cerebrovascular accidents and previously seen by Dr. Pate. Apparently no known prior cardiac history. For the past several weeks has been feeling episodes of vague chest sensations with lightheadedness and some shortness of breath. These episodes were occurring on and off the few days prior to his coming to the hospital. He presented to the ER May 10, [address] scan of the brain without contrast showed what appeared to be a new left thalamic and right basal ganglion / anterior limb of the external capsule attenuation area is suggestive of subacute infarcts also having evidence of old left infarction. No evidence of hemorrhage, cerebral atrophy and moderate small vessel changes. MRA showed mild atherosclerotic changes with moderate distal left vertebral stenosis. MRI showed a subacute punctate left parietal infarct with old bilateral basal ganglion, left internal capsule, and centrum semiovale lacunar infarcts suggestive an embolic phenomenon. His EKG in the emergency room showed atrial fibrillation with controlled ventricular response averaging 89 bpm, evidence of LVH but no prior infarction. Neurology consultation was placed. The patient was admitted to a telemetry unit. He was started on Eliquis 2.5 mg twice a day along with his antihypertensive therapy. When seen by neurology they again recommended oral anticoagulation and discontinuing aspirin but continuing low-dose aspirin antiplatelet therapy. He was recommended physical and occupational therapy. Certainly not a candidate for thrombolytic therapy. He was given metoprolol tartrate 25 mg May 10 at four and May 11 and 03:40 a.m. On manager monitoring his controlled ventricular response remained with his beta-sherice of chest pain. May 11 at 07:08 a.m. he converted from atrial fibrillation with a rate averaging approximately 100 bpm to a sinus mechanism briefly and had a 4.9- second asystolic pauses. His convert into sinus rhythm was very brief. Resuming atrial fibrillation within seconds. Cardiology consultation was placed today. OTHER CURRENT CARDIAC SYMPTOMS: As mentioned, despite his age has been fairly active, perhaps limited by some shortness of breath but no history of chest, jaw or arm discomfort. Is not aware of any abnormal EKG, though unfortunately there was no prior EKG in the [facility] system for us to review. Does admit to having had a remote stress study but does not recall the specific indication. Had a brief cigar smoking history of 50 years ago. As mentioned was shovel snow and was playing tennis up until 18 months without problems and has occasional morning cough productive of clear sputum but no history of hemoptysis or prior pneumonia. Has a history of gastroesophageal reflux disease with question of aspiration in the past. Customarily has no orthopnea. Sleeps with 1-0. Unaware of prior rheumatic fever or heart murmur. Treated hypertension since his 50s. Unaware of cardiomegaly. Has never had an awareness of his heart action, but as mentioned has been having a vague recurrent episodes of lightheadedness, chest sensations lasting few minutes at a time, especially in the past few days prior to his admission. As mentioned, no previously documented rhythm disturbance. His father suddenly at age 50 following myocardial infarction but was a heavy smoker. Does not ingest excessive caffeine or alcohol. No history of thyroid dysfunction and does not use [id number] decongestants, pep pills diet pills or energizers. Dizziness as mentioned. Remote history of following episodes she would to dehydration. Prior cerebrovascular events as mentioned, but no flank pain, hematuria or blue toe syndrome. Denies claudication. No history of varicose veins, phlebitis or ankle swelling. CORONARY RISK FACTORS: Advanced age. Male gender. Remote smoking history. Hypercholesterolemia and hyperlipidemia. FAMILY HISTORY: Premature coronary disease. OTHER PAST MEDICAL/SURGICAL HISTORY: History of epistaxis. 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 Degenerative joint disease. Gastroesophageal reflux disease was esophagitis, diverticular disease of the colon with occasional bleeding hemorrhoids. Prior cerebral vascular accident with some ongoing amnesia and dysphagia. Allergic rhinitis. History of mild to moderate renal insufficiency. REVIEW OF SYSTEMS: Denies any recent fever, chills or weight loss. Current weight his maximum but has been stable the past few years. No other significant problems on systems review as outlined by his attending physician on admission. HOME MEDICATIONS: He had been taking Avapro 150 mg by mouth twice a day, amlodipine 2.5 mg daily, aspirin 81 mg daily, Plavix 75 mg daily, Zetia 10 mg daily, Uloric 40 mg by mouth every evening, Namenda 5 mg daily, Protonix 40 mg every morning, fish oil 1 gram daily, coenzyme 10 200 mg daily, vitamin D 1,000units daily, vitamin B complex tablet daily. ALLERGIES: None known. PHYSICAL EXAMINATION: Constitutional: Pleasant bright elderly male lying comfortably with head of bed elevated 30 degrees. Medium body build. Vital signs: Heart rate was 98 beats per minute and irregular, blood pressure 144/76 supine, 142/74 sitting with legs dependent (both arms) respiratory rate 16 per minute, O2 saturation 97% on room air. Afebrile. Weight 172 pounds, height 67 inches, BMI 27. Eyes: Normal conjunctivae and lids. No xanthelasma, pallor or icterus. ENT: / mouth: Normal oral moisture. No central cyanosis. Neck: Trachea midline. Thyroid not enlarged. Jugular veins were at the level sternal angle. Respiratory: Normal-appearing chest configuration and chest expansion with good air entry over both lung greenwood. No inspiratory rales or prolongation of expiration. Apical impulse at the fifth intercostal space, S1 and S2 were variable with his arrhythmia. No audible gallop with a soft variable systolic murmur left sternal border not radiating into his neck. No diastolic murmur or rub. Normal carotid upstrokes with variable volume related to his arrhythmia. No bruits. Upper extremity, femoral pulses were symmetrical and normal. Pedal pulses were slightly reduced. No dependent edema. Few dilated superficial venules. Abdominal aorta was not palpable. No bruits. GI: Soft, nontender abdomen with no splenomegaly. Rectal examination not indicated. Musculoskeletal: No obvious joint deformities other than a well-healed median scar anterior distal right thigh good muscular strength and tone for age. Normal spine curvature. Neuro: / psych: Bright, alert and oriented he was able to get a fair history. Eye, facial, extremity movements appear to be symmetrical and normal at this time. No involuntary movements. Skin: No rashes, ecchymotic lesions pallor or icterus. No clubbing peripheral cyanosis or no clubbing, splinter hemorrhages or peripheral cyanosis. INVESTIGATIONS: Chest x-ray, portable upright study performed in the emergency room on admission was reviewed independently and shows heart size upper limits of normal for this technique. Unfolded thoracic aorta but normal pulmonary vasculature. Has increased interstitial markings diffusely. EKG: Admission tracing May 10 at 06:53 a.m. showed underlying atrial fibrillation with controlled ventricular sponsor averaging 98 bpm. Left ventricle hypertrophy by Dennis criteria. Lateral ST / T-wave abnormalities. Unfortunately there is no prior EKG available for comparison. air sampling and monitoring: As described above was admitted with controlled ventricular response and had one conversion from atrial fibrillation to sinus rhythm with 4.9-second pause a consistent with tachy-noelle syndrome. He promptly converted back to atrial fibrillation with ventricular response averaging approximately 80-90 beats per minute. Echocardiogram: Study performed on his admission read by me shows borderline left ventricle hypertrophy with normal wall motion. Mildly dilated left atrium. Right heart chamber sizes and motion were normal with pulmonary arterial pressure upper limits of normal. Inferior vena cava was of normal size. Normal respiratory collapse against elevated central venous pressure. Mild aortic valvular sclerosis with moderately dilated aortic root and mild aortic insufficiency. Mild thickening in the mitral annulus with mild insufficiency. Normal appearing tricuspid valve with very mild tricuspid insufficiency. No apparent intracardiac mass or pericardial effusion. IMPRESSION/PLAN: 1. Tachy-noelle syndrome - 5-second asystolic pause on conversion from atrial fibrillation to sinus rhythm: His controlled ventricular response without negative chronotropic therapy and the observed marked pauses clearly in the indication of conduction tissue disease. In light of the need for lifelong oral anticoagulation here with his asystolic pauses there have likely explain his strange sensations the past few days prior to his admission, we recommended implantation of a single chamber permanent pacemaker at this time. We anticipate he will likely stay in atrial fibrillation. However, if he should convert on anticoagulation, he is likely to fall and perhaps suffer significant injury. We discussed the indication procedure and potential risks of permanent pacemaker implant. The patient and his understand and agree. We will arrange for this as quickly as possible once he has been nothing by mouth for 8 hours. 2. Atrial fibrillation (unspecified): As mentioned were not sure how long he has had atrial fibrillation or paroxysms as we have no access to prior EKGs. Based on his in-hospital experience and the side of his left atrium high suspect he will be more likely to be staying in atrial fibrillation. With his lack of awareness of his heart action without evidence of CHF in his current rhythm disturbance and has demonstrated degenerative conduction tissue disease, we would be reluctant to consider antiarrhythmic measures but with focus on rhythm rake rate rather than rhythm control. Regardless, she will require a lifelong oral anticoagulation in light of his imaging studies improving bilateral cerebrovascular bands suggestive of prior embolic phenomenon on the basis of his atrial fibrillation. Once he is on oral anticoagulation for at least 30 days. Should his pacemaker demonstrate that he does have a conversion to sinus rhythm. Our plan would be to upgrade his device only if he was having symptoms suggest pacemaker syndrome. 3. Abnormal EKG: Despite his multiple coronary risk factors has described fairly good exercise tolerance for his age with no symptoms to suggest myocardial ischemia. His echocardiogram showed no localized wall motion abnormality. His EKG shows findings in keeping with his ultrasound - evidence of hypertensive heart disease. As mentioned, we have no prior tracing for comparison. Fortunately chemistry has demonstrated serial negative Troponin I levels. 4. 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 Curiously his pro BNP level was elevated at 5964 despite his chest x-ray showing no evidence of pulmonary congestion and his echocardiogram showing an estimated mean left atrial pressure that was not elevated and pulmonary arterial pressure that was upper limits of normal. Has mild systolic hypertension. Despite his current Avapro therapy. I believe once he does have his pacemaker in place the introduction of at least low-dose beta sherice therapy would be prudent given his risk factors. Note is made of his electrolyte balance but mild to moderate chronic renal insufficiency with estimated glomerular infiltration rate of 38-40, BUN today 35, creatinine 1.88. Recent ultra sensitive TSH was only slightly elevated 5.2. 5. 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 I cannot detect his aortic insufficiency murmur on a clinically, nor can I detect his mild mitral insufficiency clinically. No symptoms or signs to suggest endocarditis. SBE antibiotic prophylaxis is not indicated for these lesions. My opinions and plans were discussed with the patient and his who appeared understand and agree. Further investigations and treatment will depend on his response these measures. We are cautiously optimistic following his pacemaker implant tomorrow. He will be resuming his Eliquis tomorrow morning and he will be able to be discharged home. We will plan on continue to follow him closely with you in hospital and as an outpatient. Thank you for allowing us to participate in the care of your patient. DAMIEN
--- NOTE | 2018-05-13 08:20 | IPN ---
DATE OF SERVICE: 05/13/2018 CARDIOLOGY PROGRESS NOTE SUBJECTIVE: Has had only minor incisional discomfort overnight. Slept fairly well. Remains free of any chest discomfort or shortness of breath. Continues to have no awareness of his heart action. OBJECTIVE: Pleasant, bright elderly male lying comfortably with the head of bed elevated 30 degrees. Heart rate 98 beats per minute and irregular, blood pressure 150/90 (having not received his antihypertensive therapy yet this morning), respiratory rate 16 per minute, O2 saturation 92%. Afebrile. No pallor, cyanosis. Trachea midline. Neck veins were not elevated. Normal chest configuration and chest expansion. His pacemaker incisional dressing was changed and with his Eliquis therapy he did have some oozing. Does not appear to have a significant hematoma. Dressing was changed. No pedal edema. REGISTRATION CLERK: This shows again a sustained atrial fibrillation with controlled ventricular response in the 80s at this time. The monitor does confirm appropriate VVI pacing at 60 bpm. PACEMAKER INTERROGATION: [employer] - Assurity MRI compatible - model number [id number] shows excellent intracardiac electrograms measuring 7.6 mV. His ventricular pacing threshold was only 0.5 V/0.4 ms. His device is set at VVI low rate 60 bpm. LABORATORY DATA: Blood work this morning shows a hemoglobin of 14.2. Normal white blood cell count and platelet count. His electrolytes are normal. BUN 33, creatinine 1.9. Fasting glucose was 100. IMPRESSION/PLAN: 1. Atrial fibrillation (persistent): As mentioned, has no awareness of his heart action. His ventricular response at rest remains controlled. We are starting him on low-dose metoprolol succinate to help prevent non-physiological heart rate responses with activity and also help his blood pressure. In light of his current incisional oozing, we have elected to hold his Eliquis today. This will be started 2.5 mg twice daily tomorrow morning. 2. Tachy-noelle syndrome/single chamber pacemaker in situ: Overnight the monitor has documented appropriate function of a single chamber device. As mentioned, some incisional oozing but no hematoma. His PA and left lateral chest x-ray are pending at this time as is his EKG. I am optimistic that he will be able to be discharged after receiving his second dose of Ancef at 1:00 p.m. today. 3. Abnormal EKG: No symptoms to suggest myocardial ischemia. Abnormalities believed to be primarily related to his hypertensive heart disease. It may still be prudent to consider an objective evaluation of his coronary prognosis at some point as an outpatient. 4. Hypertensive heart disease (benign without heart failure): No symptoms or signs of congestion. Current blood pressure slightly elevated but he has not received his antihypertensive therapy. From our standpoint, we would like him to continue on metoprolol succinate 50 mg daily with his Avapro 150 mg twice daily. 5. 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 His insufficiency murmurs are not audible. Remains free of any symptom or sign to suggest endocarditis. At this point, I believe he will be able to be discharged later today. We would caution him to perform only light activities of daily living with his left arm until his johanny are removed in our office in 7-10 days time. He will be given an appointment for a wound check, staple removal and blood pressure check at that time. We would encourage a no added salt, low-fat, low-cholesterol diet. Medications should continue: - metoprolol succinate 50 mg daily - Avapro 150 mg by mouth twice daily - Eliquis 2.5 mg twice daily to start May 14, 2018 - atorvastatin 40 mg daily at bedtime - Uloric 40 mg daily at bedtime - Namenda 5 mg daily - fish oil one tablet daily - Protonix 40 mg daily - vitamin B complex one tablet daily - vitamin D 1000 units by mouth daily. We would also encouraged him not to get his incision wet until his johanny are removed. Should he notice any abnormal erythema, swelling or discharge, we have encouraged him to contact our office promptly. DAMIEN
--- NOTE | 2018-05-13 08:39 | REP ---
PORTABLE CHEST: AP portable view of the chest is performed. Comparison 05/10/2018. There is mild cardiomegaly again noted. There is calcification and tortuosity of the thoracic aorta. Mediastinal silhouette is unchanged. Interstitial fibrotic changes are again noted. There is placement of a single lead pacemaker with the ventricular lead apparently in good position. There is no pneumothorax. Electronically Signed by Eladio Mckeon MD 05/15/2018 09:48 A
--- NOTE | 2018-05-13 08:59 | REP ---
Chest two views HISTORY: Pacemaker implant Comparison: 05/12/2018 An increase in interstitial markings is present in the lungs consistent with chronic interstitial fibrosis. The cardiac silhouette is enlarged. The pulmonary vasculature is normal in appearance. The bony structure is intact. A cardiac pacemaker is present. IMPRESSION: 1. Chronic interstitial fibrosis. 2. Cardiomegaly. Electronically Signed by Mahesh Ivey MD 05/13/2018 08:51 A
[2018-05-13] MEDS ORDERED: METOPROLOL SUCC (TopROL XL) 50MG **XL** TAB PO SCH (09:00)
[2018-05-13] MEDS: IRBESARTAN 150 MG TAB PO SCH (09:27)
[2018-05-13] MEDS: VITAMIN B COMPLEX/VIT C CAP PO SCH (09:27)
[2018-05-13] MEDS: CO-ENZYME Q10 50 MG CAP PO SCH (09:27)
[2018-05-13] MEDS: VITAMIN D 1,000 INTERNATIONAL UNITS TABLET PO SCH (09:28)
[2018-05-13] MEDS: PANTOPRAZOLE 40MG TAB (PROTONIX) PO SCH (09:28)
[2018-05-13] MEDS: MEMANTINE 5MG TABLET (NAMENDA) PO SCH (09:28)
[2018-05-13] MEDS: OMEGA-3 1000MG CAPSULE PO SCH (12:29)
[2018-05-13] MEDS ORDERED: PRAV1TAB39 PO (12:57)
--- NOTE | 2018-05-13 17:43 | DSES ---
DATE OF ADMISSION: 05/10/2018 DATE OF DISCHARGE: 05/13/2018 DISCHARGE DIAGNOSIS: Subacute CVA. SECONDARY DIAGNOSIS: Tachybrady syndrome. PROCEDURES: Permanent pacemaker placement. CONSULTS: Dr. Tito Castro, cardiology; Dr. Arlene Cristina of neurology. HOSPITAL COURSE: The patient is an 83-year-old man who presented with a history of hypertension, dyslipidemia, and history of a CVA times two back in 2001 and 2004, as well as BPH, who came in for severe acute vertigo. He did have an MRI which showed left parietal lobe new subacute infarct and he was admitted for further management. He was seen in consultation by Dr. Cristina of neurology. He did have an extensive stroke workup completed. He had a TSH that was slightly elevated at 5.2 but not impressive. I would recommend he have an A1c as an outpatient. He did have a duplex of his carotid that did not reveal significant disease. He had an MRI of the brain that revealed punctate subacute left parietal lobe infarct as well as old bilateral basal ganglia and left internal capsule and centrum semiovale lacunar infarctions as well as small vessel ischemic disease. He did have an MRA of the brain that revealed no aneurysm or arteriovenous (AV) malformation and some atherosclerotic disease intracranially. He did have a permanent pacemaker placed and following that he did have a chest x-ray followup this morning which revealed chronic interstitial fibrosis and cardiomegaly. ASSESSMENT AND PLAN: This is an 83-year-old man who presented with subacute CVA. He was found to have tachybrady syndrome and did have significant pauses. While here, he was seen by Dr. Castro of cardiology. 1. Atrial fibrillation. Patient was completely oblivious and asymptomatic with this, however he was having episodes of bradycardia. He did have a permanent pacemaker placement, being started on a low dose of metoprolol succinate as per Dr. Castro' request. He does have some mild oozing from his pacemaker site and as such, Dr. Castro has elected to hold his Eliquis for today, but it should be started at 2.5 mg twice daily tomorrow as treatment for his atrial fibrillation. As such, he will be anticoagulated and rate controlled. Dr. Castro has already finalized the patient's discharge for us today and made recommendations in terms of his followup in his office. 2. Subacute CVA likely secondary to atrial fibrillation. At this time, he is being started on anticoagulation. He will followup with neurology within 2-3 weeks. His blood pressure is well controlled. Would recommend checking an A1c on the outpatient setting with his primary care provider. Curiously, he has not been started on a statin. He was previously on Zetia. Neurology had requested that the patient be continued on Zetia. Dr. Castro has stopped this. Given he has some history of dyslipidemia and we are stopping Zetia, will send him home with pravastatin [address] Castro decides to have further adjustments, these can certainly be made on the outpatient setting. The patient has been cleared by physical therapy. I did order the patient for occupational therapy again. Once again, Dr. Castro has finalized the patient's discharge and is confident in his abilities to care for himself at home. 3. Hypertension. He is being started on metoprolol. He is also continued on Avapro. 4. Dementia. Continue with Namenda. 5. Vitamin deficiencies. Continue with vitamin B, C, D supplementations. 6. Gout. Continue with Uloric. DISPOSITION: The patient is being discharged home. He is at his functional baseline. He is to followup with neurology within 2-3 weeks, followup with Dr. Castro for wound check and staple removal. He is supposed to have light activity with his left arm, no added salt diet. He is to wear a sling on the left arm until 05/14/2018, avoid getting the incision wet until the johanny are removed, and to start his Eliquis tomorrow on 05/14/2018, at 2.5 mg by mouth twice a day. MEDICATIONS: At the time of discharge: - Eliquis 2.5 mg twice a day starting tomorrow - metoprolol extended release 50 mg daily - pravastatin 20 mg daily - vitamin B complex one tablet daily - vitamin D 1000 units daily - coenzyme Q10 200 mg daily - Uloric 40 mg every evening - irbesartan 150 mg twice a day - Namenda 5 mg daily - omega 3 polyunsaturated 1 gram daily at noon - pantoprazole 40 mg daily Greater than 30 minutes spent organizing disposition.
--- NOTE | 2018-05-15 00:32 | ECGEPIP ---
Stationary ECG Study [facility] Test Date: 2018-05-12 Pat Name: MACIE SMITH Department: Room: [place] [address] Gender: M Rn Neonatal: : 1935 Requested By: Tito Castro Order Number: [id number] Reading MD: Howard Mead Measurements Intervals [place] Rate: 87 P: NV: 0 QRS: -8 QRSD: 90 T: 240 QT: 343 QTc: 415 Interpretive Statements ATRIAL FIBRILLATION WITH ABERRANT CONDUCTION OR VENTRICULAR PREMATURE COMPLEXES VOLTAGE CRITERIA FOR LVH PROBABLY DEMAND VENTRICULAR PACEMAKER ACTIVITY NONSPECIFIC ST & T-WAVE ABNORMALITY PRIOR TRACING ON 05/10/2018 AT 6:53:27 A.M., PATIENT THEN ALSO WAS IN ATRIAL FIBRILLATION Electronically Signed On 05-15-2018 0:31:59 EDT by Howard Mead
--- NOTE | 2018-05-15 00:37 | ECGEPIP ---
Stationary ECG Study [facility] Test Date: 2018-05-13 Pat Name: MACIE SMITH Department: Room: [place] [address] Gender: M Smt Machine Operator: SURJIT : 1935 Requested By: Tito Castro Order Number: [id number] Reading MD: Howard Mead Measurements Intervals [place] Rate: 93 P: [place]: 0 QRS: -7 QRSD: 91 T: 46 QT: 344 QTc: 428 Interpretive Statements ATRIAL FIBRILLATION MODERATE VOLTAGE CRITERIA FOR LVH, CONSIDER NORMAL VARIANT NONSPECIFIC ST & T-WAVE ABNORMALITY ABNORMAL RHYTHM ECG COMPARED TO THE LAST 2 TRACINGS, NO SIGNIFICANT CHANGES. NO PVCS AND/OR PACEMAKER BEATS NOTED IN THIS TRACING Electronically Signed On 05-15-2018 0:36:58 EDT by Howard Mead
== END 2018-05-13 14:55 | disposition home or self-care (01) | DRG 242 ==
LOC: M ED 06:32 → M ED INP 14:05 → M PCU 19:42
PROVIDERS: ADMIT Internal Medicine; ATTEND Internal Medicine
PROC: 02HK3JZ Insertion of Pacemaker Lead into Right Ventricle, Percutaneous Approach (ICD-10-PCS; 2018-05-12)
PROC: 0JH604Z Insertion of Pacemaker, Single Chamber into Chest Subcutaneous Tissue and Fascia, Open Approach (ICD-10-PCS; principal; 2018-05-12 21:00)
DX: I49.5 Sick sinus syndrome (principal); I63.9 Cerebral infarction, unspecified; I48.1 Persistent atrial fibrillation; I12.9 Hypertensive chronic kidney disease with stage 1 through stage 4 chronic kidney disease, or unspecified chronic kidney disease; E78.5 Hyperlipidemia, unspecified; N40.0 Benign prostatic hyperplasia without lower urinary tract symptoms; J84.10 Pulmonary fibrosis, unspecified; F03.90 Unspecified dementia, unspecified severity, without behavioral disturbance, psychotic disturbance, mood disturbance, and anxiety; M10.9 Gout, unspecified; K21.9 Gastro-esophageal reflux disease without esophagitis; Z88.6 Allergy status to analgesic agent; Z79.899 Other long term (current) drug therapy; K64.8 Other hemorrhoids; N18.3 Chronic kidney disease, stage 3 (moderate); I08.0 Rheumatic disorders of both mitral and aortic valves

== ENCOUNTER 2018-05-13 20:16 | Emergency (ER) | payer MEDICARE, OTHER ==
[~2018-05-13] VITALS: Ht 170.2 cm; Wt 79.5 kg
[~2018-05-13 20:16] MED LIST changes: +COEN200C PO; +ELIQ2.5T PO; +FISH7.5C PO; +PRAV1TAB39 PO; +TOPR50TA23 PO
[2018-05-13 22:29] LABS: HEMOGLOBIN 13.6 g/dl (13.5-17.5); MEAN CORPUSCULAR HEMOGLOBIN 31.1 pg (27.0-33.0); MEAN CORPUSCULAR HGB CONC 32.4 g/dl (32.0-36.5); MEAN CORPUSCULAR VOLUME 96.1 fl (80.0-96.0); PLATELET COUNT, AUTOMATED 221 10^3/uL (150-450); RED BLOOD COUNT 4.37 10^6/uL (4.30-6.10); WHITE BLOOD COUNT 8.2 10^3/uL (4.0-10.0)
[2018-05-13 23:15] VITALS: BP 125/71
== END 2018-05-13 23:16 | disposition home or self-care (01) ==
LOC: M ED 20:16
DX: L76.22 Postprocedural hemorrhage of skin and subcutaneous tissue following other procedure (principal); I10 Essential (primary) hypertension; K21.9 Gastro-esophageal reflux disease without esophagitis; N18.9 Chronic kidney disease, unspecified; N40.0 Benign prostatic hyperplasia without lower urinary tract symptoms; Z79.82 Long term (current) use of aspirin; Z79.899 Other long term (current) drug therapy; Z86.73 Personal history of transient ischemic attack (TIA), and cerebral infarction without residual deficits

== ENCOUNTER → 2018-05-27 | Outpatient (REF) | payer MEDICARE, OTHER ==
[~2018-05-27] MED LIST changes: +TOPR50TA PO; -TOPR50TA23 PO
[2018-05-28 17:18] LABS: URINE TOTAL PROTEIN 68.5 MG/DL (0-12)
[2018-05-30 13:46] LABS: URINE VOLUME RANDOM ML
[2018-05-30 13:49] LABS: UPEP INTERPRETATION NO M-SPIKE NOTED
== END ==
LOC: M SFHCPLAZ 12:41
PROVIDERS: ATTEND Family Medicine
DX: D72.821 Monocytosis (symptomatic) (principal)
CPT/HCPCS: 84166; 87507; G0463

== ENCOUNTER → 2018-05-29 | Outpatient (CLI) | payer MEDICARE, OTHER ==
--- NOTE | 2018-05-29 15:58 | REP ---
Clinical: Chronic diarrhea. Technique: Single supine view of the abdomen and pelvis. Findings: Bowel gas pattern is nonspecific. No organomegaly. No abnormal calcifications. Phleboliths noted in the pelvis along with calcifications of the common femoral arteries. Skeletal structures demonstrate degenerative changes. Intimal calcifications of the mid abdominal aorta are suspected as well. Impression: Nonspecific bowel gas pattern. Atherosclerotic changes to the aorta and common femoral arteries. Electronically Signed by Chencho Tang MD 05/29/2018 03:49 P
== END ==
LOC: M RAD 15:05
PROVIDERS: ATTEND Family Medicine
DX: I70.0 Atherosclerosis of aorta (principal); I70.213 Atherosclerosis of native arteries of extremities with intermittent claudication, bilateral legs; R14.3 Flatulence; K52.9 Noninfective gastroenteritis and colitis, unspecified

== ENCOUNTER → 2019-01-16 | Outpatient (REF) | payer MEDICARE, OTHER ==
[~2019-01-16] MED LIST changes: -EZET10TA PO; +EZET10TA21 PO; -FEBU40TA PO; +FEBU40TA4 PO
== END ==
LOC: M SFHCPLAZ 13:03
PROVIDERS: ATTEND Family Medicine
DX: B82.9 Intestinal parasitism, unspecified (principal)
CPT/HCPCS: 87177; 87507; G0463

== ENCOUNTER → 2019-01-30 | Outpatient (REF) | payer MEDICARE, OTHER ==
[2019-01-30 12:30] LABS: HEMATOCRIT 41.5 % (42.0-52.0); HEMOGLOBIN 13.7 g/dl (13.5-17.5); MEAN CORPUSCULAR HEMOGLOBIN 31.6 pg (27.0-33.0); MEAN CORPUSCULAR VOLUME 95.6 fl (80.0-96.0); PLATELET COUNT, AUTOMATED 234 10^3/uL (150-450); RED BLOOD COUNT 4.34 10^6/uL (4.30-6.10); WHITE BLOOD COUNT 12.3 10^3/uL (4.0-10.0)
[2019-01-30 12:54] LABS: CALCIUM LEVEL 9.9 MG/DL (8.8-10.2); GLOMERULAR FILTRATION RATE 34.2 (>35); POTASSIUM SERUM 4.2 MEQ/L (3.5-5.1); TOTAL 25(OH) VITAMIN D 48.8 NG/ML (30.0-100.0)
== END ==
LOC: M SFHCPLAZ 09:42
PROVIDERS: ATTEND Family Medicine
DX: N18.3 Chronic kidney disease, stage 3 (moderate) (principal); I12.9 Hypertensive chronic kidney disease with stage 1 through stage 4 chronic kidney disease, or unspecified chronic kidney disease; E55.9 Vitamin D deficiency, unspecified
CPT/HCPCS: 36415; 80048; 82306; 85027; G0463

== ENCOUNTER → 2019-02-05 | Outpatient (CLI) | payer MEDICARE, OTHER ==
--- NOTE | 2019-02-05 13:29 | REP ---
RENAL ULTRASOUND: Real-time sonographic evaluation of the kidneys performed. Kidneys are normal in size and echotexture, right kidney is mildly smaller than left. Right kidney measures 10.8 x 4.4 x 4.7 cm and left kidney 12.6 x 4.2 x 5.0 cm. There is no hydronephrosis bilaterally. There are multiple bilateral renal cysts. Largest on the right are measured, in the upper pole 1.5 cm maximally, mid aspect 1.5 cm maximally and lower pole 2.2 cm maximally. Largest on the left are measured, upper pole 4.7 x 3.6 x 5.2 cm with an adjacent 2.3 cm cyst. There is also a cyst in the lower pole 6.7 x 4.8 x 7.1 cm. Urinary bladder is mild to moderately distended with bilateral ureteral jets noted. Prostate measures 5.0 x 3.1 x 5.0 cm with diffuse heterogeneous echotexture. Total volume is 41 mL. IMPRESSION: No hydronephrosis bilaterally. Multiple bilateral renal cysts. Ureteral jets are seen in the urinary bladder. Mildly enlarged prostate. Unreviewed
== END ==
LOC: M RAD 10:40
PROVIDERS: ATTEND Family Medicine
DX: N18.3 Chronic kidney disease, stage 3 (moderate) (principal)

== ENCOUNTER → 2019-05-09 | Outpatient (CLI) | payer MEDICARE, OTHER ==
[~2019-05-09] MED LIST changes: -COEN200C PO; +RA C200C2 PO
--- NOTE | 2019-05-09 15:25 | REP ---
REASON FOR EXAM: Pain after contusion. The accompanying frontal view of the chest has been compared to the latest prior chest examination of 05/13/2018. The frontal view of the chest shows mild cardiomegaly and thoracic aortic tortuosity, status quo. The single-chamber bipolar pacemaker device is unchanged. No new abnormal opacities have developed. Multiple views of the left ribs show age undetermined, but probably healing, fractures involving the posterolateral aspects of the left 9th and 10th ribs. IMPRESSION: Age undetermined left rib fractures, as described above. Electronically Signed by Nicanor Patten DO 05/09/2019 03:45 P
== END ==
LOC: M WUC 11:42
PROVIDERS: ATTEND Physician Assistant
DX: S20.222A Contusion of left back wall of thorax, initial encounter (principal); X58.XXXA Exposure to other specified factors, initial encounter; Y92.89 Other specified places as the place of occurrence of the external cause; Y93.9 Activity, unspecified; Y99.9 Unspecified external cause status

== ENCOUNTER → 2019-08-14 | Outpatient (REF) | payer MEDICARE, OTHER ==
[~2019-08-14] MED LIST changes: +PANT40TA29 PO; -PANT40TA3 PO
[2019-08-14 13:36] LABS: HEMATOCRIT 43.7 % (42.0-52.0); MEAN CORPUSCULAR HEMOGLOBIN 31.5 pg (27.0-33.0); MEAN CORPUSCULAR VOLUME 98.2 fl (80.0-96.0); PLATELET COUNT, AUTOMATED 186 10^3/uL (150-450); RED BLOOD COUNT 4.45 10^6/uL (4.30-6.10); WHITE BLOOD COUNT 6.5 10^3/uL (4.0-10.0)
[2019-08-14 13:55] LABS: CALCIUM LEVEL 9.2 MG/DL (8.8-10.2); CREATININE FOR GFR 2.02 MG/DL (0.70-1.30); GLOMERULAR FILTRATION RATE 33.7 (>35); POTASSIUM SERUM 4.6 MEQ/L (3.5-5.1)
== END ==
LOC: M SFHCPLAZ 10:44
PROVIDERS: ATTEND Family Medicine
DX: N18.3 Chronic kidney disease, stage 3 (moderate) (principal); I12.9 Hypertensive chronic kidney disease with stage 1 through stage 4 chronic kidney disease, or unspecified chronic kidney disease; Z23 Encounter for immunization
CPT/HCPCS: 36415; 80048; 85027; 90732; G0009

== ENCOUNTER → 2019-12-13 | Outpatient (REF) | payer MEDICARE, OTHER | LOC: M LABWUC 13:36 | PROVIDERS: ATTEND Nurse Practitioner Family | DX: S39.012A Strain of muscle, fascia and tendon of lower back, initial encounter (principal); W18.30XA Fall on same level, unspecified, initial encounter; Y92.009 Unspecified place in unspecified non-institutional (private) residence as the place of occurrence of the external cause; N39.0 Urinary tract infection, site not specified ==

== ENCOUNTER → 2020-03-23 | Outpatient (CLI) | payer MEDICARE, OTHER ==
[2020-03-23 14:36] LABS: CALCIUM LEVEL 9.9 MG/DL (8.8-10.2); CHOLESTEROL RISK RATIO 2.555 (<5); CREATININE FOR GFR 1.85 MG/DL (0.70-1.30); GLOMERULAR FILTRATION RATE 37.4 (>35); POTASSIUM SERUM 4.5 MEQ/L (3.5-5.1)
== END ==
LOC: M PLALAB 09:53
PROVIDERS: ATTEND Physician Assistant
DX: I11.9 Hypertensive heart disease without heart failure (principal); E78.00 Pure hypercholesterolemia, unspecified

== ENCOUNTER → 2020-06-07 | Outpatient (REF) | payer MEDICARE, OTHER | LOC: M LAB REF 16:39 | PROVIDERS: ATTEND Physician Assistant | DX: R06.02 Shortness of breath (principal) ==

== ENCOUNTER → 2020-06-07 | Outpatient (REF) | payer MEDICARE, OTHER ==
[2020-06-09 18:10] LABS: FREE KAPPA LIGHT CHAINS SERUM 83.5 mg/L (3.3-19.4); FREE LAMBDA LIGHT CHAINS SERUM 45.2 mg/L (5.7-26.3); KAPPA/LAMBDA RATIO SERUM 1.85 (0.26-1.65)
== END ==
LOC: M LAB REF 16:37
PROVIDERS: ATTEND Internal Medicine Nephrology
DX: R80.9 Proteinuria, unspecified (principal); R06.02 Shortness of breath

== ENCOUNTER → 2020-06-08 | Outpatient (CLI) | payer MEDICARE, OTHER ==
--- NOTE | 2020-06-08 12:29 | REP ---
INDICATION: SHORTNESS OF BREATH. COMPARISON: Frontal view obtained as part of a rib series 05/09/2019 TECHNIQUE: PA and lateral FINDINGS: The superior mediastinal structures are midline. The cardiac silhouette is enlarged. The diaphragmatic surfaces of the lungs are regular, and the costophrenic angles are clear. The pulmonary [place] are stable. Basilar fibrotic changes are again noted. There is thoracic aortic tortuosity status quo. Single chamber bipolar pacemaker device status quo. No acute patchy parenchymal opacities or pleural effusions have developed. The imaged osseous structures are within normal limits for the patient's age.. IMPRESSION: There is no acute cardiopulmonary disease. Findings as described above. <Electronically signed by Nicanor Patten > 06/08/20 1968
== END ==
LOC: M RAD 11:32
PROVIDERS: ATTEND Physician Assistant
DX: R06.02 Shortness of breath (principal)

== ENCOUNTER → 2020-06-23 | Outpatient (REF) | payer MEDICARE, OTHER | LOC: M LAB REF 13:12 | PROVIDERS: ATTEND Ophthalmology | DX: H02.831 Dermatochalasis of right upper eyelid (principal); H02.834 Dermatochalasis of left upper eyelid ==

== ENCOUNTER → 2020-06-29 | Outpatient (REF) | payer MEDICARE, OTHER | LOC: M LAB REF 17:14 | PROVIDERS: ATTEND Internal Medicine Nephrology | DX: R80.9 Proteinuria, unspecified (principal) ==

== ENCOUNTER → 2020-07-02 | Outpatient (REF) | payer MEDICARE, OTHER | LOC: M LAB REF 17:49 | PROVIDERS: ATTEND Dermatology | DX: D23.30 Other benign neoplasm of skin of unspecified part of face (principal) ==

== ENCOUNTER → 2020-09-21 | Outpatient (REF) | payer MEDICARE, OTHER | LOC: M LAB REF 16:45 | PROVIDERS: ATTEND Internal Medicine Nephrology | DX: R80.9 Proteinuria, unspecified (principal) ==

== ENCOUNTER → 2020-10-01 | Outpatient (CLI) | payer MEDICARE, OTHER | LOC: M PLALAB 08:21 | PROVIDERS: ATTEND Internal Medicine Cardiovascular Disease | DX: I48.11 Longstanding persistent atrial fibrillation (principal); Z79.01 Long term (current) use of anticoagulants ==

== ENCOUNTER → 2020-10-06 | Outpatient (CLI) | payer MEDICARE, OTHER ==
[2020-10-06 11:10] LABS: CHOLESTEROL RISK RATIO 2.479 (<5)
[2020-10-06 11:17] LABS: TOTAL 25(OH) VITAMIN D 44.8 NG/ML (30.0-100.0)
== END ==
LOC: M PLALAB 08:47
PROVIDERS: ATTEND Family Medicine
DX: E55.9 Vitamin D deficiency, unspecified (principal); E78.2 Mixed hyperlipidemia; Z79.899 Other long term (current) drug therapy

== ENCOUNTER → 2020-10-19 | Outpatient (CLI) | payer MEDICARE, OTHER ==
[2020-10-19 14:54] LABS: DIGOXIN LEVEL 1.2 NG/ML (0.5-2.0)
== END ==
LOC: M PLALAB 08:46
PROVIDERS: ATTEND Internal Medicine Cardiovascular Disease
DX: I11.0 Hypertensive heart disease with heart failure (principal); I48.11 Longstanding persistent atrial fibrillation

== ENCOUNTER → 2020-10-25 | Outpatient (CLI) | payer MEDICARE, OTHER ==
[2020-10-25 14:32] LABS: CALCIUM LEVEL 9.2 MG/DL (8.8-10.2); CREATININE FOR GFR 1.82 MG/DL (0.70-1.30); POTASSIUM SERUM 4.3 MEQ/L (3.5-5.1)
== END ==
LOC: M PLALAB 10:37
PROVIDERS: ATTEND Physician Assistant
DX: I11.0 Hypertensive heart disease with heart failure (principal)

== ENCOUNTER 2021-04-04 09:55 | Inpatient (IN) | payer MEDICARE, OTHER ==
[~2021-04-04] VITALS: Ht 167.6 cm; Wt 76.2 kg
[2021-04-04 10:47] LABS: BASO % 0.3 % (0.0-1.0); EOS % 0.1 % (0.0-3.0); HEMATOCRIT 42.2 % (42.0-52.0); HEMOGLOBIN 13.9 g/dl (13.5-17.5); LYMPH # 0.7 10^3/uL (1.5-5.0); LYMPH % 5.8 % (24.0-44.0); MEAN CORPUSCULAR HGB CONC 32.9 g/dl (32.0-36.5); MONO # 1.2 10^3/uL (0.0-0.8); MONO % 10.4 % (2.0-8.0); NEUTROPHILS # 9.4 10^3/uL (1.5-8.5); PLATELET COUNT, AUTOMATED 167 10^3/uL (150-450); RED BLOOD COUNT 4.35 10^6/uL (4.30-6.10); WHITE BLOOD COUNT 11.3 10^3/uL (4.0-10.0)
[2021-04-04 11:13] LABS: CK-MB VALUE MASS 2.5 NG/ML (<3.6); MB/CK RELATIVE INDEX 0.81 (< OR =4)
[2021-04-04 11:22] LABS: ALBUMIN 2.7 GM/DL (3.2-5.2); BILIRUBIN,DIRECT 0.5 MG/DL (0.0-0.2); BILIRUBIN,TOTAL 1.3 MG/DL (0.2-1.0); CALCIUM LEVEL 9.2 MG/DL (8.8-10.2); CREATININE FOR GFR 2.29 MG/DL (0.70-1.30); GLOMERULAR FILTRATION RATE 29.1 (>35); THYROID STIMULATING HORMONE 2.43 uIU/ML (0.358-3.740); TOTAL PROTEIN 6.3 GM/DL (6.4-8.2)
[2021-04-04 12:13] LABS: DIGOXIN LEVEL 1.8 NG/ML (0.5-2.0)
[2021-04-04 12:45] LABS: CK-MB VALUE MASS 3.9 NG/ML (<3.6); MB/CK RELATIVE INDEX 0.82 (< OR =4)
[2021-04-04] MEDS ORDERED: cefTRIAXone SOD 1 GM in D5W MINI-BAG PLUS 50 ML IV ONE (13:50)
[2021-04-04] MEDS ORDERED: COQ1200C3 PO (14:24)
[2021-04-04] MEDS ORDERED: LOPE1CAP5 PO (14:24)
[2021-04-04] MEDS ORDERED: D31000TA2 PO (14:24)
[2021-04-04] MEDS ORDERED: ELIQ2.5T PO (14:24)
[2021-04-04] MEDS ORDERED: LOSA25TA13 PO (14:24)
[2021-04-04] MEDS ORDERED: ALLO100T PO (14:24)
[2021-04-04] MEDS ORDERED: ATOR40TA75 PO (14:24)
[2021-04-04] MEDS ORDERED: FURO20TA2 PO (14:24)
[2021-04-04] MEDS ORDERED: DIGO0.123 PO (14:24)
[2021-04-04] MEDS ORDERED: HOME MED LIST COMPLETE! XX SCH (14:25)
[2021-04-04] MEDS ORDERED: hydrALAZINE 20MG/ML 1ML VIAL (J0360 PER 20MG) IV ONE (16:00)
[2021-04-04] MEDS: ACETAMINOPHEN TAB 650MG DOSE (2X325MG) PO PRN (18:07)
[2021-04-04 18:14] VITALS: BP 137/76
[2021-04-04 20:03] VITALS: BP 132/66
[2021-04-04] MEDS: MEMANTINE 5MG TABLET (NAMENDA) PO SCH (20:03)
[2021-04-04 20:54] LABS: CALCIUM LEVEL 9.4 MG/DL (8.8-10.2); CREATININE FOR GFR 2.39 MG/DL (0.70-1.30); GLOMERULAR FILTRATION RATE 27.7 (>35); POTASSIUM SERUM 3.6 MEQ/L (3.5-5.1)
[2021-04-04] MEDS ORDERED: APIXABAN 2.5 MG TAB (ELIQUIS) PO SCH (21:00)
[2021-04-04 21:08] LABS: CK-MB VALUE MASS 20.5 NG/ML (<3.6); MB/CK RELATIVE INDEX 3.68 (< OR =4)
[2021-04-04] MEDS ORDERED: MAG SULF 1GM/100ML (MAG RUN) 1 GM in IV 1 EA IV ONE (21:35)
[2021-04-04] MEDS ORDERED: ASPIRIN 81 MG CHEW TABLET PO STA (22:39)
[2021-04-04] MEDS ORDERED: HEPARIN SOD (PORCINE) 5000UNITS/ML 1ML VIAL/SYRINGE IV PRN (22:45)
[2021-04-04] MEDS ORDERED: HEPARIN SOD (PORCINE) 5000UNITS/ML 1ML VIAL/SYRINGE IV ONE (22:45)
[2021-04-04] MEDS ORDERED: TICAGRELOR 90 MG TABLET (BRILINTA) PO ONE (22:50)
[2021-04-04] MEDS: HEPARIN DRIP 25,000 UNITS in IV 1 EA IV SCH (23:46)
[2021-04-04 23:57] VITALS: BP 127/63
[2021-04-05] MEDS ORDERED: cefTRIAXone SOD 1 GM in D5W MINI-BAG PLUS 50 ML IV SCH (02:00)
[2021-04-05 02:39] LABS: CK-MB VALUE MASS 29.5 NG/ML (<3.6); MB/CK RELATIVE INDEX 4.92 (< OR =4)
[2021-04-05 05:07] VITALS: BP 126/74
[2021-04-05 05:54] LABS: HEMOGLOBIN 13.6 g/dl (13.5-17.5); MEAN CORPUSCULAR HEMOGLOBIN 32.5 pg (27.0-33.0); MEAN CORPUSCULAR HGB CONC 33.2 g/dl (32.0-36.5); MEAN CORPUSCULAR VOLUME 98.1 fl (80.0-96.0); PLATELET COUNT, AUTOMATED 149 10^3/uL (150-450); RED BLOOD COUNT 4.18 10^6/uL (4.30-6.10); WHITE BLOOD COUNT 11.3 10^3/uL (4.0-10.0)
[2021-04-05 07:34] VITALS: BP 134/70
[2021-04-05 07:40] LABS: ALBUMIN 2.3 GM/DL (3.2-5.2); BILIRUBIN,TOTAL 0.6 MG/DL (0.2-1.0); CALCIUM LEVEL 9.2 MG/DL (8.8-10.2); CREATININE FOR GFR 2.45 MG/DL (0.70-1.30); GLOMERULAR FILTRATION RATE 26.9 (>35); POTASSIUM SERUM 3.7 MEQ/L (3.5-5.1); TOTAL PROTEIN 5.9 GM/DL (6.4-8.2)
[2021-04-05 08:58] LABS: CK-MB VALUE MASS 23.7 NG/ML (<3.6); MB/CK RELATIVE INDEX 5.12 (< OR =4)
[2021-04-05] MEDS ORDERED: ATORVASTATIN 20 MG TAB PO SCH (09:00)
[2021-04-05] MEDS: VITAMIN D 1,000 INTERNATIONAL UNITS TABLET PO SCH (09:27)
[2021-04-05] MEDS: MEMANTINE 5MG TABLET (NAMENDA) PO SCH ×2 (09:27→20:50)
[2021-04-05] MEDS: NS 1,000 ML IV SCH ×2 (09:27→20:50)
[2021-04-05] MEDS: PANTOPRAZOLE 40MG TAB (PROTONIX) PO SCH (09:27)
[2021-04-05] MEDS: ATORVASTATIN 20 MG TAB PO SCH (09:28)
[2021-04-05] MEDS: CO-ENZYME Q10 50 MG CAP PO SCH (09:28)
[2021-04-05] MEDS: allopurinoL 100 MG TAB PO SCH (09:28)
[2021-04-05] MEDS: DIGOXIN 0.125 MG TAB PO SCH (11:06)
[2021-04-05 12:40] VITALS: BP 142/65
[2021-04-05 13:56] LABS: CK-MB VALUE MASS 16.9 NG/ML (<3.6); MB/CK RELATIVE INDEX 5.06 (< OR =4)
[2021-04-05 16:39] VITALS: BP 149/67
[2021-04-05] MEDS: POLYVINYL ALCOHOL OPHTH SOLN 15 ML(LIQUITEARS) OU SCH ×2 (17:04→20:50)
[2021-04-05 18:00] LABS: MAGNESIUM LEVEL 2.6 MG/DL (1.7-2.2)
[2021-04-05 20:00] VITALS: BP 162/70
[2021-04-05] MEDS: HEPARIN DRIP 25,000 UNITS in IV 1 EA IV SCH (20:03)
[2021-04-05 20:25] LABS: MB/CK RELATIVE INDEX 2.94 (< OR =4)
[2021-04-05] MEDS: ACETAMINOPHEN TAB 650MG DOSE (2X325MG) PO PRN (20:50)
[2021-04-05] MEDS: amLODIPine 5 MG TAB PO SCH (21:41)
[2021-04-06] VITALS: BP 129/72
[2021-04-06] MEDS: cefTRIAXone SOD 1 GM in D5W MINI-BAG PLUS 50 ML IV SCH (02:04)
[2021-04-06 02:37] LABS: MB/CK RELATIVE INDEX 3.14 (< OR =4)
[2021-04-06 04:00] VITALS: BP 135/75
[2021-04-06 07:08] LABS: HEMATOCRIT 39.5 % (42.0-52.0); HEMOGLOBIN 12.9 g/dl (13.5-17.5); MEAN CORPUSCULAR HEMOGLOBIN 32.2 pg (27.0-33.0); MEAN CORPUSCULAR HGB CONC 32.7 g/dl (32.0-36.5); MEAN CORPUSCULAR VOLUME 98.5 fl (80.0-96.0); PLATELET COUNT, AUTOMATED 148 10^3/uL (150-450); RED BLOOD COUNT 4.01 10^6/uL (4.30-6.10); WHITE BLOOD COUNT 7.5 10^3/uL (4.0-10.0)
[2021-04-06 07:36] LABS: ALBUMIN 2.1 GM/DL (3.2-5.2); BILIRUBIN,TOTAL 0.3 MG/DL (0.2-1.0); CALCIUM LEVEL 8.9 MG/DL (8.8-10.2); CREATININE FOR GFR 1.95 MG/DL (0.70-1.30); GLOMERULAR FILTRATION RATE 35.1 (>35); POTASSIUM SERUM 3.6 MEQ/L (3.5-5.1)
[2021-04-06 07:42] LABS: CK-MB VALUE MASS 4.2 NG/ML (<3.6); MB/CK RELATIVE INDEX 2.41 (< OR =4)
[2021-04-06 08:00] VITALS: BP 165/86
[2021-04-06] MEDS: DIGOXIN 0.125 MG TAB PO SCH (09:00)
[2021-04-06] MEDS: MEMANTINE 5MG TABLET (NAMENDA) PO SCH ×2 (09:14→19:34)
[2021-04-06] MEDS: ATORVASTATIN 20 MG TAB PO SCH (09:14)
[2021-04-06] MEDS: CO-ENZYME Q10 50 MG CAP PO SCH (09:14)
[2021-04-06] MEDS: allopurinoL 100 MG TAB PO SCH (09:16)
[2021-04-06] MEDS: amLODIPine 5 MG TAB PO SCH (09:16)
[2021-04-06] MEDS: PANTOPRAZOLE 40MG TAB (PROTONIX) PO SCH (09:16)
[2021-04-06] MEDS: VITAMIN D 1,000 INTERNATIONAL UNITS TABLET PO SCH (09:16)
[2021-04-06] MEDS: POLYVINYL ALCOHOL OPHTH SOLN 15 ML(LIQUITEARS) OU SCH ×3 (09:16→19:34)
[2021-04-06 12:00] VITALS: BP 136/76
[2021-04-06] MEDS: APIXABAN 2.5 MG TAB (ELIQUIS) PO SCH ×2 (12:12→19:34)
[2021-04-06] MEDS: TAMSULOSIN 0.4 MG CAP PO SCH (12:13)
[2021-04-06 15:21] LABS: MAGNESIUM LEVEL 2.1 MG/DL (1.7-2.2)
[2021-04-06 16:00] VITALS: BP 136/69
[2021-04-06 21:00] VITALS: BP 142/70
[2021-04-07] MEDS: cefTRIAXone SOD 1 GM in D5W MINI-BAG PLUS 50 ML IV SCH (02:06)
[2021-04-07 08:21] LABS: HEMATOCRIT 36.1 % (42.0-52.0); HEMOGLOBIN 12.1 g/dl (13.5-17.5); MEAN CORPUSCULAR HEMOGLOBIN 32.4 pg (27.0-33.0); MEAN CORPUSCULAR HGB CONC 33.5 g/dl (32.0-36.5); MEAN CORPUSCULAR VOLUME 96.8 fl (80.0-96.0); PLATELET COUNT, AUTOMATED 168 10^3/uL (150-450); RED BLOOD COUNT 3.73 10^6/uL (4.30-6.10); WHITE BLOOD COUNT 7.2 10^3/uL (4.0-10.0)
[2021-04-07 08:52] LABS: BILIRUBIN,TOTAL 0.4 MG/DL (0.2-1.0); CALCIUM LEVEL 8.9 MG/DL (8.8-10.2); CREATININE FOR GFR 1.79 MG/DL (0.70-1.30); GLOMERULAR FILTRATION RATE 38.7 (>35); POTASSIUM SERUM 3.9 MEQ/L (3.5-5.1); TOTAL PROTEIN 5.9 GM/DL (6.4-8.2)
[2021-04-07] MEDS: TAMSULOSIN 0.4 MG CAP PO SCH (09:44)
[2021-04-07] MEDS: ATORVASTATIN 20 MG TAB PO SCH (09:44)
[2021-04-07] MEDS: allopurinoL 100 MG TAB PO SCH (09:44)
[2021-04-07] MEDS: MEMANTINE 5MG TABLET (NAMENDA) PO SCH ×2 (09:44→20:41)
[2021-04-07] MEDS: PANTOPRAZOLE 40MG TAB (PROTONIX) PO SCH (09:44)
[2021-04-07] MEDS: VITAMIN D 1,000 INTERNATIONAL UNITS TABLET PO SCH (09:44)
[2021-04-07] MEDS: APIXABAN 2.5 MG TAB (ELIQUIS) PO SCH ×2 (09:44→20:41)
[2021-04-07] MEDS: CO-ENZYME Q10 50 MG CAP PO SCH (09:46)
[2021-04-07] MEDS: POLYVINYL ALCOHOL OPHTH SOLN 15 ML(LIQUITEARS) OU SCH ×3 (09:46→20:41)
[2021-04-07] MEDS: amLODIPine 5 MG TAB PO SCH (09:49)
[2021-04-07] MEDS: DIGOXIN 0.125 MG TAB PO SCH (09:50)
[2021-04-07 14:00] VITALS: BP 143/73
[2021-04-07] MEDS: ACETAMINOPHEN TAB 650MG DOSE (2X325MG) PO PRN (20:41)
[2021-04-07] MEDS: CEFDINIR 300 MG CAP (OMNICEF) PO SCH (20:41)
[2021-04-08 05:55] VITALS: BP 149/78
[2021-04-08 08:15] LABS: HEMATOCRIT 37.3 % (42.0-52.0); HEMOGLOBIN 12.3 g/dl (13.5-17.5); MEAN CORPUSCULAR HEMOGLOBIN 32.5 pg (27.0-33.0); MEAN CORPUSCULAR VOLUME 98.4 fl (80.0-96.0); PLATELET COUNT, AUTOMATED 155 10^3/uL (150-450); RED BLOOD COUNT 3.79 10^6/uL (4.30-6.10); WHITE BLOOD COUNT 7.7 10^3/uL (4.0-10.0)
[2021-04-08] MEDS: APIXABAN 2.5 MG TAB (ELIQUIS) PO SCH (08:35)
[2021-04-08] MEDS: CO-ENZYME Q10 50 MG CAP PO SCH (08:35)
[2021-04-08] MEDS: DIGOXIN 0.125 MG TAB PO SCH (08:35)
[2021-04-08] MEDS: PANTOPRAZOLE 40MG TAB (PROTONIX) PO SCH (08:35)
[2021-04-08] MEDS: TAMSULOSIN 0.4 MG CAP PO SCH (08:35)
[2021-04-08 08:36] VITALS: BP 149/78
[2021-04-08] MEDS: allopurinoL 100 MG TAB PO SCH (08:36)
[2021-04-08] MEDS: amLODIPine 5 MG TAB PO SCH (08:36)
[2021-04-08] MEDS: ATORVASTATIN 20 MG TAB PO SCH (08:36)
[2021-04-08] MEDS: MEMANTINE 5MG TABLET (NAMENDA) PO SCH (08:36)
[2021-04-08] MEDS: VITAMIN D 1,000 INTERNATIONAL UNITS TABLET PO SCH (08:36)
[2021-04-08] MEDS: CEFDINIR 300 MG CAP (OMNICEF) PO SCH (08:36)
[2021-04-08] MEDS: POLYVINYL ALCOHOL OPHTH SOLN 15 ML(LIQUITEARS) OU SCH (08:37)
[2021-04-08 08:39] LABS: BILIRUBIN,TOTAL 0.3 MG/DL (0.2-1.0); CALCIUM LEVEL 8.9 MG/DL (8.8-10.2); CREATININE FOR GFR 1.74 MG/DL (0.70-1.30); POTASSIUM SERUM 4.2 MEQ/L (3.5-5.1)
[2021-04-08] MEDS ORDERED: CEFD300CAP PO (11:51)
[2021-04-08] MEDS ORDERED: AMLO1TAB24 PO (11:51)
[2021-04-08] MEDS ORDERED: FLOM0.4C39 PO (11:51)
[2021-04-08] MEDS ORDERED: ASPI81CH33 PO (12:43)
== END 2021-04-08 17:10 | disposition home health service (06) | DRG 689 ==
LOC: M ED 09:55 → M ED INP 16:00 → ENRESERV 16:53 → M PCU 17:59 → M MS5PR 04-06 20:05
PROVIDERS: ADMIT Internal Medicine; ATTEND Internal Medicine
DX: N39.0 Urinary tract infection, site not specified (principal); I21.4 Non-ST elevation (NSTEMI) myocardial infarction; N17.9 Acute kidney failure, unspecified; I16.0 Hypertensive urgency; I48.91 Unspecified atrial fibrillation; N18.30 Chronic kidney disease, stage 3 unspecified; I69.311 Memory deficit following cerebral infarction; N40.0 Benign prostatic hyperplasia without lower urinary tract symptoms; M10.9 Gout, unspecified; F03.90 Unspecified dementia, unspecified severity, without behavioral disturbance, psychotic disturbance, mood disturbance, and anxiety; I71.4 Abdominal aortic aneurysm, without rupture; Z79.01 Long term (current) use of anticoagulants; K21.9 Gastro-esophageal reflux disease without esophagitis; Z79.899 Other long term (current) drug therapy; Z66 Do not resuscitate

== ENCOUNTER → 2021-08-03 | Outpatient (CLI) | payer MEDICARE, OTHER ==
[~2021-08-03] MED LIST changes: +ALLO100T PO; +AMLO1TAB24 PO; +ASPI81CH33 PO; +ATOR40TA75 PO; +CEFD300CAP PO; +COQ1200C3 PO; +DIGO0.123 PO; +FLOM0.4C39 PO; +LOPE1CAP5 PO; +LOSA25TA13 PO; +VITA100093 PO
[2021-08-03 13:44] LABS: BASO % 0.6 % (0.0-1.0); EOS # 0.3 10^3/uL (0.0-0.5); EOS % 3.9 % (0.0-3.0); HEMATOCRIT 42.2 % (42.0-52.0); HEMOGLOBIN 14.2 g/dl (13.5-17.5); LYMPH # 1.4 10^3/uL (1.5-5.0); LYMPH % 20.6 % (24.0-44.0); MEAN CORPUSCULAR HEMOGLOBIN 33.9 pg (27.0-33.0); MEAN CORPUSCULAR HGB CONC 33.6 g/dl (32.0-36.5); MEAN CORPUSCULAR VOLUME 100.7 fl (80.0-96.0); MONO # 0.5 10^3/uL (0.0-0.8); MONO % 6.9 % (2.0-8.0); NEUTROPHILS # 4.5 10^3/uL (1.5-8.5); NEUTROPHILS % 67.5 % (36.0-66.0); PLATELET COUNT, AUTOMATED 166 10^3/uL (150-450); RED BLOOD COUNT 4.19 10^6/uL (4.30-6.10); WHITE BLOOD COUNT 6.7 10^3/uL (4.0-10.0)
[2021-08-03 14:16] LABS: ALBUMIN 3.1 GM/DL (3.2-5.2); ALT/SGPT 31 U/L (12-78); BILIRUBIN,TOTAL 0.9 MG/DL (0.2-1.0); BLOOD UREA NITROGEN 25 MG/DL (7-18); CALCIUM LEVEL 9.6 MG/DL (8.8-10.2); CARBON DIOXIDE LEVEL 30 MEQ/L (21-32); CHLORIDE LEVEL 111 MEQ/L (98-107); CREATININE FOR GFR 2.06 MG/DL (0.70-1.30); FOLATE 13.3 NG/ML; GLOMERULAR FILTRATION RATE 32.8 (>35); GLUCOSE, FASTING 112 MG/DL (70-100); RHEUMATOID FACTOR QUANT < 10.0 IU/ML (<15.0); SODIUM LEVEL 145 MEQ/L (136-145); TOTAL PROTEIN 6.8 GM/DL (6.4-8.2); VITAMIN B12 LEVEL 353 PG/ML
[2021-08-03 14:18] LABS: ERYTHROCYTE SEDIMENTATION RATE 27 mm/hr (0-20)
[2021-08-03 14:48] LABS: HEMOGLOBIN A1c 5.5 %
[2021-08-04 09:36] LABS: ALBUMIN 3.48 GM/DL (3.29-5.55); ALBUMIN % 51.2 % (55.8-66.1); ALPHA-1-GLOBULIN % 4.8 % (2.9-4.9); ALPHA-1-GLOBULINS 0.33 GM/DL (0.17-0.41)
[2021-08-04 09:37] LABS: ALPHA-2-GLOBULINS 0.82 GM/DL (0.42-0.99); ALPHA-2-GLOBULINS % 12.1 % (7.1-11.8); BETA-1-GLOBULINS 0.45 GM/DL (0.28-0.60); BETA-1-GLOBULINS % 6.6 % (4.7-7.2); BETA-2-GLOBULINS 0.41 GM/DL (0.19-0.55); GAMMA GLOBULIN % 19.3 % (11.1-18.8); GAMMA GLOBULINS 1.31 GM/DL (0.65-1.58)
== END ==
LOC: M PLALAB 10:57
PROVIDERS: ATTEND Psychiatry & Neurology Neurology
DX: R41.841 Cognitive communication deficit (principal)

== ENCOUNTER → 2021-12-15 | Outpatient (CLI) | payer MEDICARE, OTHER ==
[~2021-12-15] MED LIST changes: +FISH10005 PO; -FISH7.5C PO; +SILD20TA11
== END ==
LOC: M RAD 10:36
PROVIDERS: ATTEND Internal Medicine Medical Oncology
DX: D47.2 Monoclonal gammopathy (principal)

== ENCOUNTER → 2022-07-03 | Outpatient (REF) | payer MEDICARE, OTHER ==
[~2022-07-03] MED LIST changes: +CLOP75TA99 PO; -PLAV1TAB2 PO
== END ==
LOC: M LAB REF 12:22
PROVIDERS: ATTEND Internal Medicine
DX: I48.0 Paroxysmal atrial fibrillation (principal)

== ENCOUNTER → 2023-01-08 | Outpatient (REF) | payer MEDICARE, OTHER | LOC: M LAB REF 16:16 | PROVIDERS: ATTEND Internal Medicine | DX: F01.50 Vascular dementia, unspecified severity, without behavioral disturbance, psychotic disturbance, mood disturbance, and anxiety (principal) ==

== ENCOUNTER → 2023-06-07 | Outpatient (CLI) | payer MEDICARE, OTHER ==
[~2023-06-07] MED LIST changes: -ASPI-161 PO; +ASPI-615 PO; +DIPH1TAB80 PO; -DIPH2.5T14 PO
== END ==
LOC: M RAD 15:47
PROVIDERS: ATTEND Internal Medicine Nephrology
DX: R33.9 Retention of urine, unspecified (principal); N40.1 Benign prostatic hyperplasia with lower urinary tract symptoms

== ENCOUNTER → 2023-12-28 | Outpatient (REF) | payer MEDICARE, OTHER ==
[2023-12-28 16:41] LABS: PERCENT SATURATION 29.1 % (19.7-50.0)
== END ==
LOC: M LAB REF 16:15
PROVIDERS: ATTEND Internal Medicine
DX: I13.0 Hypertensive heart and chronic kidney disease with heart failure and stage 1 through stage 4 chronic kidney disease, or unspecified chronic kidney disease (principal); N18.32 Chronic kidney disease, stage 3b

== ENCOUNTER → 2024-02-13 | Outpatient (CLI) | payer MEDICARE, OTHER ==
[~2024-02-13] MED LIST changes: +BARIUM SULFATE 700 MG TABLET (E-Z-DISK) As Ordered ONE; +E-Z-PAQUE 96% w/w SUSP 176GM BTL As Ordered ONE; +VARIBAR NECTAR 40% w/v 240ML SUSP BTL As Ordered ONE; +VARIBAR PUDDING 40% w/v 230ML TUBE As Ordered ONE
== END ==
LOC: M RAD 09:52
PROVIDERS: ATTEND Internal Medicine
DX: R13.10 Dysphagia, unspecified (principal)

== ENCOUNTER 2024-03-15 09:54 | Emergency (ER) | payer MEDICARE, OTHER ==
[~2024-03-15] VITALS: Ht 170.2 cm; Wt 71.4 kg
[~2024-03-15 09:54] MED LIST changes: -BARIUM SULFATE 700 MG TABLET (E-Z-DISK) As Ordered ONE; -E-Z-PAQUE 96% w/w SUSP 176GM BTL As Ordered ONE; -VARIBAR NECTAR 40% w/v 240ML SUSP BTL As Ordered ONE; -VARIBAR PUDDING 40% w/v 230ML TUBE As Ordered ONE
[2024-03-15] MEDS ORDERED: HEAL1TAB PO (10:23)
[2024-03-15] MEDS ORDERED: MAGN200T PO (10:23)
[2024-03-15] MEDS: NS 500 ML IV ONE (10:25)
[2024-03-15 10:42] LABS: BASO % 0.5 % (0.0-1.0); EOS # 0.1 10^3/uL (0.0-0.5); EOS % 1.2 % (0.0-3.0); HEMATOCRIT 41.5 % (42.0-52.0); LYMPH # 0.7 10^3/uL (1.5-5.0); LYMPH % 11.5 % (24.0-44.0); MEAN CORPUSCULAR HEMOGLOBIN 32.9 pg (27.0-33.0); MEAN CORPUSCULAR HGB CONC 33.7 g/dl (32.0-36.5); MEAN CORPUSCULAR VOLUME 97.6 fl (80.0-96.0); MONO # 0.7 10^3/uL (0.0-0.8); MONO % 12.7 % (2.0-8.0); NEUTROPHILS # 4.3 10^3/uL (1.5-8.5); NEUTROPHILS % 73.8 % (36.0-66.0); PLATELET COUNT, AUTOMATED 119 10^3/uL (150-450); RED BLOOD COUNT 4.25 10^6/uL (4.30-6.10); WHITE BLOOD COUNT 5.8 10^3/uL (4.0-10.0)
[2024-03-15 11:13] LABS: ALBUMIN 3.5 G/DL (3.2-5.2); BILIRUBIN,DIRECT 0.4 MG/DL (<0.4); CALCIUM LEVEL 10.3 MG/DL (8.3-10.6); CREATININE FOR GFR 2.51 MG/DL (0.70-1.30); POTASSIUM SERUM 4.3 MMOL/L (3.5-5.1); TOTAL PROTEIN 6.8 G/DL (5.7-8.2)
[2024-03-15 11:15] LABS: THYROID STIMULATING HORMONE 1.942 uIU/ML (0.55-4.78)
[2024-03-15 11:23] LABS: KETONE, URINE AUTO RFX NEGATIVE (NEGATIVE); LEUKOCYTE ESTERASE UR AUTO RFX NEGATIVE (NEGATIVE); MUCUS, URINE RFX SMALL (NEGATIVE); NITRITE, URINE AUTO RFX NEGATIVE (NEGATIVE); RBC, URINE AUTO RFX 1 /HPF (0-3); SQUAM EPITHELIAL CELL UR AURFX 0 /HPF (0-6); WBC, URINE AUTO RFX 0 /HPF (0-3)
[2024-03-15] MEDS ORDERED: TAMI30CA PO (12:19)
[2024-03-15 12:59] LABS: DIGOXIN LEVEL 1.7 NG/ML (0.8-2.0)
[2024-03-15] MEDS: OSELTAMIVIR PHOSPHATE 30MG CAPSULE PO ONE (13:22)
[2024-03-15 13:36] VITALS: BP 168/79; TEMP 98; O2SAT 94
== END 2024-03-15 13:38 | disposition home or self-care (01) ==
LOC: EDBD 09:54 → M ED 09:54
DX: J09.X2 Influenza due to identified novel influenza A virus with other respiratory manifestations (principal); I48.91 Unspecified atrial fibrillation; F03.90 Unspecified dementia, unspecified severity, without behavioral disturbance, psychotic disturbance, mood disturbance, and anxiety; Z86.79 Personal history of other diseases of the circulatory system; Z95.0 Presence of cardiac pacemaker; Z79.01 Long term (current) use of anticoagulants; Z79.02 Long term (current) use of antithrombotics/antiplatelets; Z79.899 Other long term (current) drug therapy

== ENCOUNTER 2025-02-09 11:24 | Emergency (ER) | payer MEDICARE, OTHER ==
[~2025-02-09 11:24] MED LIST changes: -EZET10TA21 PO; +EZET10TA57 PO; -FISH10005 PO; +FISH1CAP38 PO; -FLOM0.4C39 PO; +HEAL1TAB PO; +MAGN200T PO; -SILD20TA11; +SILD20TA64; +TAMI30CA PO; +TAMS-18 PO
[2025-02-09] MEDS ORDERED: EPINEPHrine 1 MG/10 ML SYRINGE 1.5IN ONE (11:25)
[2025-02-09] MEDS ORDERED: SODIUM BICARBONATE 8.4% INJ 50ML SYRINGE ONE (11:25)
== END 2025-02-09 11:37 | disposition expired ==
LOC: M ED 11:24
DX: I46.9 Cardiac arrest, cause unspecified (principal); I10 Essential (primary) hypertension; K21.9 Gastro-esophageal reflux disease without esophagitis; F10.10 Alcohol abuse, uncomplicated; Z86.79 Personal history of other diseases of the circulatory system; Z87.891 Personal history of nicotine dependence; Z79.01 Long term (current) use of anticoagulants; Z79.899 Other long term (current) drug therapy; Z79.02 Long term (current) use of antithrombotics/antiplatelets
CPT/HCPCS: 87486; 87581; 87633; 87798; 99285; J0168